=== PATIENT | female | born 1985 | race Caucasian/White ===

== ENCOUNTER 2019-04-25 16:19 | Emergency (ER) | payer OTHER ==
[2019-04-25 16:35] VITALS: BP 114/63
--- NOTE | 2019-04-25 17:04 | UC ---
Lower Extremity/Ankle HPI - HPI Summary HPI Summary: Pt states the past few days her right knee has been giving out. She also complains of right foot pain with unkown injury. Pt states because of her pacemaker" I have black outs so I don't know if I fell" PCP is aware of the blackouts and she has an appointment for an EKG this coming week. She states she does not recall any specific injury. - History of Current Complaint Chief Complaint: UCLowerExtremity Stated Complaint: L KNEE AND ANKLE PAIN Time Seen by Provider: 04/25/19 16:31 Hx Obtained From: Patient Hx Last Menstrual Period: does not get ?: No Onset/Duration: Gradual Onset Severity Initially: Mild Severity Currently: Mild Pain Intensity: 7 Aggravating Factor(s): Ambulation Alleviating Factor(s): Elevation Able to Bear Weight: Yes - Allergies/Home Medications Allergies/Adverse Reactions: Allergies Allergy/AdvReac Type Severity Reaction Status Date / Time enviromental Allergy Mild Congestion Uncoded 04/25/19 16:35 PMH/Surg Hx/FS Hx/Imm Hx Previously Healthy: Yes Endocrine History: Thyroid Disease Cardiovascular History: Pacemaker/ICD - Surgical History Surgical History: Yes Surgery Procedure, Year, and Place: [facility] - 03/2012. L knee ACL repair. L hand surgery. tubal ligation 2005. ablation - Family History Known Family History: Positive: None Family History: no reported cardio vascular issues in family lineage - Social History Alcohol Use: None Substance Use Type: None Smoking Status (MU): Former Smoker Type: Cigarettes Amount Used/How Often: 10 cigarettes a day, 8-9 years Length of Time of Smoking/Using Tobacco: since age 18 Have You Smoked in the Last Year: Yes When Did the Patient Quit Smoking/Using Tobacco: 02/2019 Review of Systems All Other Systems Reviewed And Are Negative: Yes Motor: Positive: Negative Neurovascular: Positive: Negative Musculoskeletal: Positive: Negative, Other: - Pain lateral left knee and left heel. Neurological: Positive: Negative Is Patient Immunocompromised?: No Physical Exam Triage Information Reviewed: Yes Appearance: Well-Appearing, No Pain Distress, Well-Nourished Vital Signs: Initial Vital Signs Temp 99.1 F 04/25/19 16:28 Pulse 109 04/25/19 16:28 Resp 16 04/25/19 16:28 BP 114/63 04/25/19 16:28 Pulse Ox 100 04/25/19 16:28 Vital Signs Reviewed: Yes Musculoskeletal: Positive: Strength Intact, ROM Intact, No Edema, Other: - Knee ligaments intact, pain on palpation left heel and plantar surface near left heel , no bruising, erythema, deformity or swelling. Neurological: Positive: Alert, Muscle Tone Normal Psychological Exam: Normal Skin Exam: Normal Lower Extremity Course/Dx - Course Course Of Treatment: Left knee:negative Left Foot:negative A knee immobilizer will be placed. - Differential Dx/Diagnosis Provider Diagnosis: Knee pain, left, Foot sprain Discharge - Sign-Out/Discharge Documenting (check all that apply): Patient Departure All imaging exams completed and their final reports reviewed: Yes - Discharge Plan Condition: Fair Disposition: HOME Patient Education Materials: Foot Sprain (ED), Knee Immobilizer (ED) Referrals: Diogo Costa MD [Medical Doctor] - Dina Dumont MD [Primary Care Provider] - Additional Instructions: Limit walking. Ice and elevate intermittently over the next few days. Follow up with the orthopedist in 3-4 days for further treatment. - Billing Disposition and Condition Condition: FAIR Disposition: Home
== END 2019-04-25 17:54 | disposition home or self-care (01) ==
LOC: UCCORT 16:19
DX: M25.561 Pain in right knee (principal); S93.602A Unspecified sprain of left foot, initial encounter; X58.XXXA Exposure to other specified factors, initial encounter; Y92.9 Unspecified place or not applicable; Z95.0 Presence of cardiac pacemaker; Z87.891 Personal history of nicotine dependence
CPT/HCPCS: 99212; G0463

== ENCOUNTER 2019-08-22 11:19 | Emergency (ER) | payer OTHER ==
--- OUTSIDE RECORDS SUMMARY | 2019-08-22 11:27 | XMS REPORT | Continuity of Care Document ---
:1985 External Reference #:[id number] Author Name Mckayla Diane NP (transmitted by agent of provider Marlyn Aburto) Address [address] [place] [address] Care Team Providers Name Role Phone Dina Dumont MD, PHD - Family Care Team Information Parent Coach [phone] Medicine Problems Active Problems Provider Date Cyst Jaw Other Lynn Quarles PA Onset: 07/11/2011 Eustachian tube disorder Mckayla Diane NP Onset: 05/13/2019 Social History Type Date Description Comments Sex Unknown Tobacco Use Start: Unknown Never Smoked Cigarettes Tobacco Use Start: Unknown Current Cigarette Smoker 1 Pack Daily ETOH Use Denies alcohol use ETOH Use Never used alcohol Recreational Drug Use Denies Drug Use Recreational Drug Use Never Used Drugs Allergies, Adverse Reactions, Alerts Description No Known Drug Allergies Medications Active Medications SIG Qnty Indications Ordering Provider Date Fluticasone [place] 2 Sprays 16units Rex Dorado, 06/30/2018 Propionate Into Each M.D. 50mcg/Act Nostril Once Suspension Daily Pantoprazole Sodium Qday Unknown 40mg Tablets DR Tylenol prn Unknown 325mg Tablets Multi-Vitamin qday Unknown Tablets Vitamin B Qday Unknown Tablets Gabapentin tid 30caps Unknown 100mg Capsules Omeprazole 1 po qd 90caps Unknown 40mg Capsules DR Simvastatin Qday Unknown 20mg Tablets Sertraline HCL Qday Unknown 200mg Tablets Mirtazapine daily Unknown 45mg Tablets Dispers Breo Ellipta 2 puffs qhs Unknown 200/25mcg Aerosol History Medications Ciprodex 5 drops twice a day 7.500ml Rex Dorado, 07/06/2019 - 0.3-0.1% x 10 days right ear M.D. 07/16/2019 Suspension Ciprodex 3-4 gtts bid in 15ml Estrada Rex, 05/13/2019 - 0.3-0.1% affected ear x 1 wk M.D. 07/06/2019 Suspension rebate: rxbin: [id number], rxpcn: [id number], rxgrp: [id number], java software architect: [id number]), id# [id number] Ofloxacin (Otic) 3-4drops twice 5ml EstradaYungoj, 05/13/2019 - 0.3% daily in affected M.D. 07/06/2019 Solution ear for one week Medications Administered in Office Medication SIG Qnty Indications Ordering Provider Date Dexamethasone Rex Dorado M.D. 07/16/2019 Injection Immunizations Description No Information Available Vital Signs Date Vital Result Comment 08/04/2019 9:35am Weight 161.00 lb Height 62 inches 5'2" BMI (Body Mass Index) 29.4 kg/m2 BP Systolic 112 mmHg BP Diastolic 79 mmHg Heart Rate 109 /min O2 % BldC Oximetry 97 % Body Temperature 98.2 F Pain Level 7 07/16/2019 3:19pm Weight 160.00 lb Height 62 inches 5'2" BMI (Body Mass Index) 29.3 kg/m2 BP Systolic 120 mmHg BP Diastolic 79 mmHg Heart Rate 93 /min O2 % BldC Oximetry 99 % Body Temperature 97.4 F Pain Level 7 Results Description No Information Available Procedures Date Code Description Status 07/16/2019 71015 Labyrinthotomy Completed 06/23/2019 27107 Tympanostomy, Gen. Anesth. Completed 06/23/2019 13647 Anesthesia, Tympanotomy Completed Medical Devices Description No Information Available Encounters Type Date Location Provider Dx Diagnosis Office Visit 07/16/2019 Main Office Rex Dorado M.D. Z96.22 Myringotomy tube(s) 4:00p status H91.93 Unspecified hearing loss, bilateral H93.13 Tinnitus, bilateral Office Visit 07/06/2019 3:00p Main Office Rex Dorado Z96.22 Myringotomy tube(s) MLingDLing status Office Visit 05/13/2019 8:00a Main Office Mckayla Crow H69.93 Unspecified IGNACIO Diane Eustachian tube disorder, bilateral H60.8x2 Other otitis externa, left ear Assessments Date Code Description Provider 07/16/2019 Z96.22 Myringotomy tube(s) status Rex Dorado M.D. 07/16/2019 H91.93 Unspecified hearing loss, bilateral Rex Dorado M.D. 07/16/2019 H93.13 Tinnitus, bilateral Rex Dorado M.D. 07/06/2019 Z96.22 Myringotomy tube(s) status Rex Dorado M.D. 06/23/2019 H93.13 Tinnitus, bilateral Miguel Ángel Jimenez MD 06/23/2019 H93.13 Tinnitus, bilateral Rex Dorado M.D. 06/23/2019 H91.93 Unspecified hearing loss, bilateral Miguel Ángel Jimenez MD 06/23/2019 H91.93 Unspecified hearing loss, bilateral Rex Dorado M.D. 05/13/2019 H69.93 Unspecified Eustachian tube disorder, Mckayla Diane NP bilateral 05/13/2019 H60.8x2 Other otitis externa, left ear Mckayla Diane NP Plan of Treatment No Information Available Functional Status Description No Information Available Mental Status Description No Information Available Referrals Refer to Dr Reason for Referral Status Appt Date Rex Dorado M.D. NO AUTH REQ FOR SURGERY Created [address] [place] [id number] [phone] Rex Dorado M.D. NO AUTH REQ FOR SURGERY Created [address] [place] [id number] [phone]
--- OUTSIDE RECORDS SUMMARY | 2019-08-22 11:27 | XMS REPORT | Continuity of Care Document ---
:1985 External Reference #:[id number] Author Name Cristina Tamayo FNP Address [address] [place] [address] Care Team Providers Name Role Phone Dina Dumont MD, PHD - Family Care Team Information [employer]ge [phone] Medicine Problems Active Problems Provider Date Cardiac pacemaker in situ Kota Mckinney M.D., Onset: 11/11/2014 [facility] Hypothyroidism Marylou Oneill M.D. Onset: 09/15/2015 Enthesopathy Randy Garcia MD, FACS Onset: 09/28/2013 Talipes planus Randy Garcia MD, FACS Onset: 09/28/2013 Localized, primary osteoarthritis of Randy Garcia MD, FACS Onset: 09/28 the ankle and/or foot Arthralgia of the lower leg Randy Garcia MD, FACS Onset: 11/27/2013 Chondromalacia of patella Randy Garcia MD, FACS Onset: 11/27/2013 Sick sinus syndrome Noris Torres MD Onset: 03/18/2014 Hyperlipidemia Usha William FNP Onset: 03/18/2012 Depressive disorder Noris Torres MD Onset: 08/15/2011 Celiac disease Noris Torres MD Onset: 08/15/2011 Tobacco user Raquel Mckay MD Onset: 07/21/2015 Mood disorder Marylou Oneill M.D. Onset: 06/22/2016 Counseling about tobacco use Kota Mckinney M.D., Onset: 08/17/2016 [facility] Hand joint pain Jeff Singh M.D. Onset: 10/23/2017 Pain in limb Jeff Singh M.D. Onset: 11/18/2017 Carpal joint sprain Jeff Singh M.D. Onset: 11/18/2017 Arthralgia of the ankle and/or foot Marylou Oneill M.D. Onset: 01/03/2018 Tachycardia Dina Dumont MD, PHD Onset: 06/10/2018 Insomnia Dina Dumont MD, PHD Onset: 07/28/2018 Exercise-induced asthma Dina Dumont MD, PHD Onset: 07/28/2018 Parietoalveolar pneumopathy Thelma Talley PA Onset: 10/02/2018 Contact dermatitis Thelma Talley PA Onset: 11/05/2018 Calcium deposits in tendon Dina Dumont MD, PHD Onset: 01/15/2019 Mixed hyperlipidemia Dina Dumont MD, PHD Onset: 01/15/2019 Counseling about tobacco use Thelma Talley PA Onset: 02/23/2019 Chest pain Dina Dumont MD, PHD Onset: 04/02/2019 Tietze's disease Dina Dumont MD, PHD Onset: 04/02/2019 Anxiety state Dina Dumont MD, PHD Onset: 04/02/2019 Osteoarthrosis involving multiple Dina Dumont MD, PHD Onset: 04/24/2019 sites but not designated as generalized Alopecia Dina Dumont MD, PHD Onset: 04/24/2019 Pediculosis capitis Dina Dumont MD, PHD Onset: 04/24/2019 Contusion of foot Lindsay Frank PA Onset: 04/29/2019 Sprain of foot Lindsay Frank PA Onset: 04/29/2019 Derangement of knee Lindsay Frank PA Onset: 04/29/2019 Hypocalcemia Dina Dumont MD, PHD Onset: 05/12/2019 Social History Type Date Description Comments Sex Unknown Tobacco Use Start: Unknown End: Former Cigarette Smoker Smoking Status Reviewed: 07/17/19 Former Cigarette Smoker ETOH Use Denies alcohol use Recreational Drug Use Denies Drug Use Exercise Type/Frequency Does housework daily Allergies, Adverse Reactions, Alerts Description No Known Drug Allergies Medications Active Medications SIG Qnty Indications Ordering Date Provider Prednisone 1 tablet daily x 4tabs M79.601 TorresJayRa, 07/17/2019 20mg 4 days Cristina M., Tablets [employer]IST[employer] Ciprodex 5 drops twice a 7.500units DoradoHarrisj, 07/06/2019 0.3-0.1% day x 10 days MD Suspension right ear Risperidone 1 by mouth at 30tabs G47.00 Norton, 06/04/2019 0.25mg bedtime MD Dina, Tablets PHD Prenatabs Rx 1 by mouth every 90tabs K90.0 Norton, 05/12/2019 29-1mg day MD Dina, Tablets PHD Magnesium 27 1 tab by mouth 60tabs K90.0 Norton, 05/12/2019 twice a day as MD Dina, 500(27Mg) mg Tablets needed for muscle PHD spasm Calcium Antacid 2 tab by mouth 240units E83.51 Norton, 05/12/2019 Extra Strength twice a day MD Dina, 750mg PHD Chewtabs Ferrous Sulfate Take One Tablet 60tabs D64.9 Norton, 03/31/2019 By Mouth Twice A MD Dina, 325(65Fe) mg Tablets Day PHD QC Arthritis Pain Take One Tablet 90tabs Norton, 03/31/2019 Relief By Mouth Every 8 MD Dina, 650mg Tablets Hours as Needed PHD ER For Pain Omeprazole 1 by mouth every 90caps Julia, 02/23/2019 20mg day MD Dina, Capsules DR PHD Vitamin D3 Take One Capsule 30caps Norton, 01/19/2019 5000Unit By Mouth Every MD Dina, Capsules Day PHD Diclofenac Sodium Apply To Right 100units L03.113 Norton, 12/24/2018 1% Hand & Wrist Four MD Dina, Gel Times A Day as PHD Needed Venlafaxine HCL ER Take One Capsule 30caps Julia, 12/23/2018 By Mouth Every MD Dina, 37.5mg Caps ER 24HR Day PHD Fluticasone Inhale One puff 1units Norton, 11/17/2018 Propionate/Salmetero By Mouth Twice A MD Dina, l Day PHD 113-14mcg/Act Aerosol Ventolin HFA 2 puffs inh every 1units J45.990 Julia, 07/28/2018 4 hours wheezing MD Dina, 108(90Base) mcg/Act or difficulty PHD Aerosol breathing Fluticasone [place] 2 Sprays 16units EstradaYungoj, 06/30/2018 Propionate Into Each Nostril 50mcg/Act Once Daily Suspension Atorvastatin Calcium Take One Tablet 30tabs Julia, 04/14/2018 By Mouth Every MD Dina, 40mg Tablets Day PHD Meloxicam Take One Tablet 30tabs Julia, 10/11/2015 15mg By Mouth Every MD Dina, Tablets Day PHD Levothyroxine Sodium Take One Tablet 30tabs E03.9 Julia, 08/08/2015 By Mouth Every MD Dina, 50mcg Tablets Day PHD Loratadine Take One Tablet 30tabs Julia, 02/16/2015 10mg By Mouth Every MD Dina, Tablets Day as Needed PHD Pantoprazole Sodium Qday Unknown 40mg Tablets DR Simvastatin Qday Unknown 20mg Tablets Mirtazapine daily Unknown 45mg Tablets Dispers Naratriptan HCL 1 bid prn Unknown 2.5mg migraine max Tablets 2/week Lorazepam take 1-2 tablets 60tabs F41.9 Julia, 1mg Tablets once daily as MD Dina, needed for PHD moderate to severe anxiety maximum daily dose = 2 F42.9 Tizanidine HCL 1-2 pills by 30tabs Beckie Burroughs 2mg mouth every 8 Tablets hours as needed spasm Gabapentin Take One Capsule 90caps M79.7 Dina Dumont MD, 400mg Capsules By Mouth Three PHD Times A Day Dicyclomine HCL Take One Capsule Unknown 10mg By Mouth Three Capsules Times A Day Before Meals Divalproex Sodium ER Take Two Tablets Unknown By Mouth AT 500mg Tablets ER 24HR Bedtime Aripiprazole Take One Tablet 30tabs Dina Dumont MD, 10mg Tablets By Mouth Every PHD Evening History Medications Fluconazole 1 by mouth once 1tabs L65.9 Dina Dumont, 05/12/2019 - 150mg can repeat in 1 , PHD Unknown Tablets week Doxycycline 1 cap by mouth 30caps M15.3 Dina Dumont, 04/24/2019 - Monohydrate twice a day , PHD Unknown 100mg before meals Capsules Complete Lice Use as directed - 1units B85.0 Dina Dumont, 04/24/2019 - Treatment need to comb nits , PHD Unknown weekly 0.33-4-0.5% Kit Nicotine Apply 1 Patch 28units Z71.6 Kush Quinones MD 03/19/2019 - 14mg/24HR Once Daily In The Unknown Patches 24HR Morning,Remove AT Night,Rotate Sites Ondansetron take one tablet 15tabs R11.0 Dina Dumont, 02/04/2019 - 4mg by mouth every 8 MD PHD 02/23/2019 Tablets Dispers hours as needed for nausea Meclizine HCL 1 tab by mouth 42tabs R42 Dina Dumont, 02/04/2019 - four times a day MD PHD 04/02/2019 12.5mg Tablets as needed for dizziness Ondansetron once - given in 1tabs R11.0 Dina Dumont, 02/04/2019 - 8mg office MD PHD 02/23/2019 Tablets Dispers SM Nicotine Apply 1 Patch 28units Z71.6 Kush Quinones MD 01/22/2019 - Transdermal Once Daily In The 03/19/2019 System/Step 2/Clear Morning,Remove AT Night,Rotate 14mg/24HR Patches Sites 24HR Vitamin D3 Adult 4 tab by mouth 120units Dina Dumont, 01/19/2019 - Gummies every day MD PHD 02/04/2019 1000Unit Chewtabs Medications Administered in Office Medication SIG Qnty Indications Ordering Provider Date Depomedrol 40mg/1cc Mercedes Hill MD 06/01/2019 (methylprednisolone acetate) Injection Immunizations CPT Code Status Date Vaccine Lot # [id number] Given 08/20/2018 Influenza Virus Vaccine, Quadrivalent, 36 Mos+, [id number] 26370 Given 01/03/2018 Td Preservative Free For Use In Individuals 7 Yrs [id number] Or Older 39327 Given 09/06/2017 Influenza Virus Vaccine Quadrivalent Iiv4 Split [id number] Preser Free Id [id number] Given 06/22/2016 Influenza Vaccine (Fluzone) Age 3 And Older [id number] Given 08/08/2015 Influenza Vaccine (Fluzone) Age 3 And Older [id number] 19202 Given 09/15/2014 flu vaccination 57010 Given 07/31/2013 flu vaccination 94844 Given 08/18/2010 flu vaccination [id number] Refused 08/07/2017 Influenza Virus Vaccine Quadrivalent Iiv4 Split Preser Free Id Vital Signs Date Vital Result Comment 07/17/2019 5:19pm BP Systolic 101 mmHg BP Diastolic 72 mmHg Body Temperature 97.8 F Heart Rate 91 /min Respiratory Rate 16 /min Weight 161.00 lb O2 % BldC Oximetry 98 % Pain Level 7 07/17/2019 5:10pm Respiratory Rate 16 /min Weight 160.00 lb Pain Level 7 Results Test Date Facility Test Result H/L Range Note PTH Intact 05/28/2019 [facility] Calcium 9.2 mg/dL 8.7-10.2 1 W/Calcium [address] [place], [place] [id number] [phone] PTH,Intact 26 pg/mL 15-65 . . 2 Laboratory test 05/28/2019 [facility] Vitamin 54.4 30.0-100.0 3 finding [address] [facility] D,25-Hydroxy ng/mL [place], [place] [id number] [phone] Albumin 3.2 g/dL Low 3.4-5.0 Vitamin B12 And 05/28/2019 [facility] Vitamin B12 560 pg/mL Normal 193-986 Folate [address] [place], [place] [address] [phone] Folic Acid 12.7 ng/mL Normal 3.1-17.5 Laboratory 04/24/2019 [facility] Sedimentation 11 mm/hr Normal 2-40 4, 5 test finding [address] [place], [place] [address] [phone] Rheumatoid Factor Screen < 10.0 IU/mL Normal 0.0-15.0 C-Reactive Protein,Quant < 3.0 mg/L <3.0 Lyme Igm 04/24/2019 [facility] Lyme Disease < 0.80 0.00-0.79 6 (Reflex [address] Antibody,QT,Igm index Western Blot) [place] [address] [phone] CCP Igg/Iga 04/24/2019 [facility] CCP Igg/Iga 7 units 0-[address] [place] [address] [phone] 1 E83.51 K90.0 2 Interpretation Intact PTH Calcium (pg/mL) (mg/dL) Normal 15 - 65 8.6 - 10.2 Primary Hyperparathyroidism >65 >10.2 Secondary Hyperparathyroidism >65 <10.2 Non-Parathyroid Hypercalcemia <65 >10.2 Hypoparathyroidism <15 < 8.6 Non-Parathyroid Hypocalcemia 15 - 65 < 8.6 Performed at: [facility] [address] [id number] [employer] Architect: Estelita Mcpherson MD, Phone: [phone] 3 Vitamin D deficiency has been defined by the [place] of [employer] and an Endocrine Society practice guideline as a level of serum 25-OH vitamin D less than 20 ng/mL (1,2). The Endocrine Society went on to further define vitamin D insufficiency as a level between 21 and 29 ng/mL (2). 1. IOM ([place] of [employer]). 2010. Dietary reference intakes for calcium and D. [place]: The National Academies Press. 2. Clementina MF, Giovanny NC, Jose C MAGANA, et al. Evaluation, treatment, and prevention of vitamin D deficiency: an Endocrine Society clinical practice guideline. JCEM. 2010; 96(7):1911-30. Performed at: [facility] [address] [id number] [employer] Architect: Estelita Mcpherson MD, Phone: [phone] 4 M15.3 5 This result was obtained with an ESR method that is not based on the standard Westergren Method. When comparing results obtained from the traditional Westergren ESR and this method it is important to refer to the reference range for each method. Method: Capillary Photometry 6 Negative <0.80 Equivocal 0.80 - 1.19 Positive >1.19 IgM levels may peak at 3-6 weeks post infection, then gradually decline. 7 Negative <20 Weak positive 20 - 39 Moderate positive 40 - 59 Strong positive >59 Performed at: RN - [facility] [address] [facility], [place], [place] [id number] [employer] Architect: Estelita Mcpherson MD, Phone: [phone] Performed at: - [facility] [address] [id number] [employer]Ee Architect: Tiago Srivastava MD, Phone: [phone] Procedures Date Code Description Status 07/02/2019 19057 Radiology, Wrist Complete Completed 06/01/201945435 Asp./Injection major joint Completed 04/30/2019 70440 Echocardiogram Complete Completed 03/17/2019 15670 Dual Pacemaker Programming Anayisis, Review And Report Completed Medical Devices Description No Information Available Encounters Type Date Location Provider Dx Diagnosis Office Visit 07/17/2019 [facility] Roni, M79.601 Pain in right arm 5:00p Cristina Acuna [employer] ASSISTANT Office Visit 07/02/2019 Orthopaedic Office Lindsay Frank, M25.531 Pain in right 9:30a PA wrist Office Visit 06/04/2019 Family Dina Mai, S93.402A Sprain of 10:15a Jim Wynn MD, PHD unspecified ligament of left ankle, init encntr G47.00 Insomnia, unspecified Office Visit 06/01/2019 [place], M23.304 Other meniscus 1:45p Office MD Mercedes derangements, unsp medial meniscus, left knee M17.12 Unilateral primary osteoarthritis, left knee M25.562 Pain in left knee Office Visit 05/28/2019 1:00p Pulmonology Thelma Talley, J84.9 Interstitial PA pulmonary disease, unspecified R05 Cough F17.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, cigarettes, in remission Z71.6 Tobacco abuse counseling Office Visit 05/19/2019 [place] M23.004 Cystic meniscus, 2:00p Office MD Mercedes unspecified medial meniscus, left knee M23.304 Other meniscus derangements, unsp medial meniscus, left knee Office Visit 05/12/2019 11:30a [facility] Savage Dumont L65.9 Nonscarring hair Jim Arroyo MD, loss, unspecified PHD 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 K90.0 Celiac disease E83.51 Hypocalcemia Office Visit 04/29/2019 Orthopaedic Lindsay Frank, S90.32xA Contusion of 9:30a Office PA left foot, initial encounter S93.602A Unspecified sprain of left foot, initial encounter M23.8x2 Other internal derangements of left knee W10.9xxA Fall (on) (from) unspecified stairs and steps, init encntr Office Visit 04/24/2019 3:00p Family Medicine Dina Dumont, M15.3 Secondary Jim Wynn MD, PHD multiple arthritis L65.9 Nonscarring hair loss, unspecified 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 Z95.0 Presence of cardiac pacemaker Office Visit 04/14/2019 2:40p Cardiology Kota Mckinney R07.9 Chest pain, Office Tino Acuna, [facility] unspecified Z95.0 Presence of cardiac pacemaker Office Visit 04/02/2019 8:30a Family Medicine Julia R07.9 Chest pain, Jim Arroyo MD, unspecified PHD M94.0 Chondrocostal junction syndrome [Tietze] F41.9 Anxiety disorder, unspecified K90.0 Celiac disease Office Visit 02/23/2019 10:00a Pulmonology Thelma Talley, R07.9 Chest pain, PA unspecified F17.210 Nicotine dependence, cigarettes, uncomplicated Z71.6 Tobacco abuse counseling Office Visit 02/04/2019 4:15p Family Savage Dumont, H81.313 Aural vertigo, Jim Arroyo MD, bilateral PHD R42 Dizziness and giddiness R11.0 Nausea Assessments Date Code Description Provider 07/17/2019 M79.601 Pain in right arm Cristina Tamayo, [employer]IST[employer] 07/02/2019 M25.531 Pain in right wrist Lindsay Frank, PA 06/04/2019 S93.402A Sprain of unspecified ligament of Dina Dumont MD, PHD left ankle, initial encounter 06/04/2019 G47.00 Insomnia, unspecified Dina Dumont MD, PHD 06/01/2019 M23.304 Other meniscus derangements, Mercedes Hill MD unspecified medial meniscus, left knee 06/01/2019 M17.12 Unilateral primary osteoarthritis, Mercedes Hill MD left knee 06/01/2019 M25.562 Pain in left knee Mercedes Hill MD 05/28/2019 J84.9 Interstitial pulmonary disease, Thelma Talley PA unspecified 05/28/2019 R05 Cough Thelma Talley PA 05/28/2019 F17.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, cigarettes, in Thelma Talley PA remission 05/28/2019 Z71.6 Tobacco abuse counseling Thelma Talley PA 05/19/2019 M23.004 Cystic meniscus, unspecified medial Mercedes Hill MD meniscus, left knee 05/19/2019 M23.304 Other meniscus derangements, Mercedes Hill MD unspecified medial meniscus, left knee 05/12/2019 L65.9 Nonscarring hair loss, unspecified Dina Dumont MD, PHD 05/12/2019 B85.0 Pediculosis due to Dina Ruby MD, PHD humanus capitis 05/12/2019 K90.0 Celiac disease Dina Dumont MD, PHD 05/12/2019 E83.51 Hypocalcemia Dina Dumont MD, PHD 04/30/2019 R07.9 Chest pain, unspecified Alban Muniz MD 04/29/2019 S90.32xA Contusion of left foot, initial Lindsay Frank PA encounter 04/29/2019 S93.602A Unspecified sprain of left foot, Lindsay Frank PA initial encounter 04/29/2019 M23.8x2 Other internal derangements of left Lindsay Frank PA knee 04/29/2019 W10.9xxA Fall (on) (from) unspecified stairs Lindsay Frank PA and steps, initial encounter 04/24/2019 M15.3 Secondary multiple arthritis Dina Dumont MD, PHD 04/24/2019 L65.9 Nonscarring hair loss, unspecified Dina Dumont MD, PHD 04/24/2019 B85.0 Pediculosis due to Dina Ruby MD, PHD humanus capitis 04/24/2019 Z95.0 Presence of cardiac pacemaker Dina Dumont MD, PHD 04/14/2019 R07.9 Chest pain, unspecified Kota Mckinney M.D., [facility] 04/14/2019 Z95.0 Presence of cardiac pacemaker Kota Mckinney M.D., [facility] 04/02/2019 R07.9 Chest pain, unspecified Dina Dumont MD, PHD 04/02/2019 M94.0 Chondrocostal junction syndrome Dina Dumont MD, PHD [[facility]] 04/02/2019 F41.9 Anxiety disorder, unspecified Dina Dumont MD, PHD 04/02/2019 K90.0 Celiac disease Dina Dumont MD, PHD 03/17/2019 I47.2 Ventricular tachycardia Kota Mckinney M.D., [facility] 03/17/2019 I47.2 Ventricular tachycardia Nubia Rascon, PA 03/17/2019 I49.5 Sick sinus syndrome Kota Mckinney M.D., [facility] 03/17/2019 I49.5 Sick sinus syndrome Nubia Rascon, PA 03/17/2019 Z95.0 Presence of cardiac pacemaker Kota Mckinney M.D., [facility] 03/17/2019 Z95.0 Presence of cardiac pacemaker Nubia Rascon, PA 02/23/2019 R07.9 Chest pain, unspecified Thelma Talley, PA 02/23/2019 F17.210 Nicotine dependence, cigarettes, Thelma Talley PA uncomplicated 02/23/2019 Z71.6 Tobacco abuse counseling Thelma Talley PA 02/04/2019 H81.313 Aural vertigo, bilateral Dina Dumont MD, PHD 02/04/2019 R42 Dizziness and giddiness Dina Dumont MD, PHD 02/04/2019 R11.0 Nausea Dina Dumont MD, PHD Plan of Treatment Future Appointment(s):09/30/2019 11:00 am - Thelma Tlaley PA at Uvtcvuhkxem12/ 06/2019 10:30 am - Mercedes Hill MD at Orthopaedic [id number]/20/2019 8:45 am - Nubia Rascon PA at Cardiology Jjpeed0204/13/2020 9:00 am - Nathalia Vicente, MSN, [employer] ASSISTANT at Cardiology Office Functional Status Functional Condition Comment Date Status Independent with all ADL's Active Glasses Active Independent with all IADL's Active Complete Dentures Active Mental Status Description No Information Available Referrals Refer to Dr Reason for Referral Status Appt Date Rex Dorado MD Sudden pain behind left ear not responding to Closed 2018 medication - Seen by Dr. Drake (neuro) who recommended referral to Dr. Dorado ENT. PCP has not examined left ear since onset of pain but warning: Patient has been unable to treat and clear herself of massive head lice infestation lasting months now and hair covered in nits at last office visit. [address] [place] [address] [phone] Carlitos Lucero MD Chronic GI upset, on PPI, still having GERD, hx Closed obstruction, IBS-D, cardiac hx, mental health hx. Using NSAIDs [address] [place] [address] [phone]
--- OUTSIDE RECORDS SUMMARY | 2019-08-22 11:27 | XMS REPORT | Continuity of Care Document ---
:1985 External Reference #:[id number] Author Name Jeff Reddy MD (transmitted by agent of provider Kale Stein) Address [address] [place] [id number] Care Team Providers Name Role Phone Fawn Reeder MD - Surgery of the Care Team Information Refrigerator Repairman [phone] Hand Dina Dumont M.D. - Family Care Team Information Refrigerator Repairman [phone] Medicine Problems Active Problems Provider Date Migraine without aura Randy Drake M.D. Onset: 01/11/2015 Late effect of sprain AND/OR strain without Jeff Reddy MD Onset: 2017 tendon injury Sprain of wrist and/or hand Jeff Reddy MD Onset: 08/07/2018 Social History Type Date Description Comments Sex Unknown Tobacco Use Start: Unknown Current Cigarette Smoker 1 Pack Daily ETOH Use Denies alcohol use Recreational Drug Use Denies Drug Use Tobacco Use Start: Unknown End: Patient is a former smoker Unknown Smoking Status Reviewed: 07/24/19 Patient is a former smoker Exercise Type/Frequency Exercises regularly Allergies, Adverse Reactions, Alerts Active Allergies Reaction Severity Comments Date NKDA 02/07/2012 Seasonal 12/05/2017 Medications Active Medications SIG Qnty Indications Ordering Date Provider Naratriptan HCL take one tab by 9tabs G43.009 Randy Judd 03/19/2019 2.5mg mouth twice a Tino Drake Tablets day as needed for severe migraines, max 2 days/week Depakote ER take two 60tabs G43.019 Randy Judd 05/24/2016 500mg Tablets tablets by Tino Drake ER 24HR mouth every evening at bedtime Acetaminophen take 2 tablets 100caps Unknown 500mg three times Capsules daily as needed Gabapentin 1 by mouth Unknown 400mg Capsules three times a day Lorazepam 1 tab PO as Unknown 1mg Tablets needed for anxiety Fluoxetine HCL 3 by mouth Unknown 20mg every day Capsules Cyclobenzaprine HCL one by mouth Unknown 10mg three times a Tablets day as needed spasm Zolpidem Tartrate Take One Tablet Unknown 10mg By Mouth AT Tablets Bedtime Maximum Daily Dose = 1 Abilify take one tablet Unknown 10mg Tablets by mouth nightly at bedtime Levothyroxine Sodium 1 by mouth Unknown 50mcg every day Tablets Ferrous Sulfate 1 by mouth Unknown 324(65Fe) every day mg Tablets DR Arthritis Pain Reliever as needed Unknown 650mg Tablets ER Meloxicam Take One Tablet Unknown 15mg Tablets By Mouth Every Day Loratadine Take One Tablet Unknown 10mg Tablets By Mouth Every Day as Needed Breo Ellipta take 1 inhaled Unknown 200-25mcg/Inh daily Aerosol Fluticasone Propionate 2 sprays each Unknown nostril qd. 50mcg/Act Suspension Immunizations Description No Information Available Vital Signs Date Vital Result Comment 07/24/2019 9:20am Height 62 inches 5'2" Weight 157.00 lb Heart Rate 96 /min BP Systolic Sitting 104 mmHg BP Diastolic Sitting 64 mmHg Respiratory Rate 12 /min Pain Level 7 O2 % BldC Oximetry 97 % BMI (Body Mass Index) 28.7 kg/m2 03/19/2019 1:40pm Weight 157.00 lb Heart Rate 106 /min BP Systolic Sitting 106 mmHg Respiratory Rate 20 /min Pain Level 6 [id number] O2 % BldC Oximetry 97 % Results Description No Information Available Procedures Description No Information Available Medical Devices Description No Information Available Encounters Type Date Location Provider Dx Diagnosis Office Visit 03/19/2019 Aiden/Elizabeth Oswald NP G43.109 Migraine with 2:00p Neurologic Serv Of aura, not [place] intractable, w/o status migrainosus H81.10 Benign paroxysmal vertigo, unspecified ear Office Visit 03/13/2019 10:00a Elizabeth Aguilar S63.592D Other specified Orthopedics at MD Maureen sprain of left [place] wrist, subsequent encounter Assessments Date Code Description Provider 03/19/2019 G43.109 Migraine with aura, not intractable, without Trevon Oswald NP status migraino 03/19/2019 H81.10 Benign paroxysmal vertigo, unspecified ear Trevon Oswald NP 03/13/2019 S63.592D Other specified sprain of left wrist, Jeff Reddy MD subsequent encounter Plan of Treatment Future Appointment(s):09/04/2019 9:45 am - Jeff Reddy MD at [place] [facility] at Tqgfwqda66/11/2020 1:00 pm - Trevon Oswald NP at [place] [facility] Functional Status Description No Information Available Mental Status Description No Information Available Referrals Refer to Reason for Referral Status Appt Date Vestibular Rehab PT Benign paroxysmal vertigo, left ear Closed 05/21/[address] [place] [address] [phone]
--- OUTSIDE RECORDS SUMMARY | 2019-08-22 11:27 | XMS REPORT | Continuity of Care Document ---
:1985 External Reference #:[id number] Author Name Rex Dorado M.D. 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 50mcg/Act Nostril Once Suspension Daily Pantoprazole Sodium Qday Unknown 40mg Tablets Tylenol prn Unknown 325mg Tablets Multi-Vitamin qday [...] Suspension Ciprodex 3-4 gtts bid in 15ml Rex Dorado, 05/13/2019 - 0.3-0.1% affected ear x 1 wk M.D. 07/06/2019 Suspension rebate: rxbin: [id number], rxpcn: [id number], rxgrp: [id number], airport engineer: [id number]), id# [id number] Ofloxacin (Otic) 3-4drops twice 5ml Rex Dorado, 05/13/2019 - 0.3% daily in affected M.D. 07/06/2019 Solution ear for one week Immunizations Description No Information Available Vital Signs Date Vital Result Comment 07/16/2019 3:19pm Weight 160.00 lb Height 62 inches 5'2" BMI (Body Mass Index) 29.3 kg/m2 BP Systolic 120 mmHg BP Diastolic 79 mmHg Heart Rate 93 /min O2 % BldC Oximetry 99 % Body Temperature 97.4 F Pain Level 7 07/06/2019 2:57pm Weight 160.00 lb Height 62 inches 5'2" BMI (Body Mass Index) 29.3 kg/m2 BP Systolic 109 mmHg BP Diastolic 76 mmHg Heart Rate 87 /min O2 % BldC Oximetry 97 % Body Temperature 98.2 F Pain Level 9 Results Description No Information Available Procedures Date Code Description Status 06/23/2019 44456 Tympanostomy, Gen. Anesth. Completed 06/23/2019 25396 Anesthesia, Tympanotomy Completed 01/16/2019 83003 Tympanometry Completed 01/16/2019 72033 Audiometry, Comprehensive Completed Medical Devices Description No Information Available Encounters Type Date Location Provider Dx Diagnosis Office Visit 07/06/2019 Main Office Rex Dorado M.D. 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 Eustachian tube disorder, bilateral H93.13 Tinnitus, bilateral Assessments Date Code Description Provider 07/06/2019 Z96.22 Myringotomy tube(s) status Rex Dorado M.D. 06/23/2019 H93.13 Tinnitus, bilateral Miguel Ángel Jimenez MD 06/23/2019 H93.13 Tinnitus, bilateral Rex Dorado M.D. 06/23/2019 H91.93 Unspecified hearing loss, bilateral Miguel Ángel Jimenez MD 06/23/2019 H91.93 Unspecified hearing loss, bilateral Rex Dorado M.D. 05/13/2019 H69.93 Unspecified Eustachian tube disorder, Mckayla Diane NP bilateral 05/13/2019 H60.8x2 Other otitis externa, left ear Mckayla Diane NP 01/16/2019 H69.93 Unspecified Eustachian tube disorder, Rex Dorado M.D. bilateral 01/16/2019 H93.13 Tinnitus, bilateral Rex Dorado M.D. Plan of Treatment Future Appointment(s):08/04/2019 10:00 am - Mckayla Diane NP at Main Office Functional Status Description No Information Available Mental Status Description No Information Available Referrals Refer to Dr Reason for Referral Status Appt Date Rex Dorado M.D. NO AUTH REQ FOR SURGERY Created [address] [place] [id number] [phone] Rex Dorado M.D. NO AUTH REQ FOR SURGERY Created [address] [place] [id number] [phone]
--- OUTSIDE RECORDS SUMMARY | 2019-08-22 11:27 | XMS REPORT | Continuity of Care Document ---
:1985 External Reference #:[id number] Author Name Dina Dumont MD, PHD Address [address] [facility] [address] [facility], [address] [place] [address] Care Team Providers Name Role Phone Dina Dumont MD, PHD - Family Care Team Information Hospital Plan Administrator Medicine Problems Active Problems Provider Date Cardiac pacemaker in situ Kota Mckinney M.D., Onset: 11/11/2014 [facility] Hypothyroidism Marylou Oneill M.D. Onset: 09/15/2015 Enthesopathy [...] tobacco use Kota Mckinney M.D., Onset: 08/17/2016 [facility] Hand joint pain Jeff Singh M.D. Onset: 10/23/2017 Pain in limb Jeff Singh M.D. Onset: 11/18/2017 Carpal joint sprain Jeff Singh M.D. Onset: 11/18/2017 Arthralgia of the ankle and/or foot Maryluo Oneill M.D. Onset: 01/03/2018 Tachycardia Dina Dumont [...] MD, PHD Onset: 04/02/2019 Anxiety state Dina Dumnot MD, PHD Onset: 04/02/2019 Osteoarthrosis involving multiple [...] Use Start: Unknown End: Former Cigarette Smoker ETOH Use Denies alcohol use Recreational Drug Use Denies Drug Use Tobacco Use Start: Unknown Patient denies history of smoking Smoking Status Reviewed: 07/29/19 Patient denies history of smoking Exercise Type/Frequency Does housework daily Allergies, Adverse Reactions, Alerts Description No Known Drug Allergies Medications Active Medications SIG Qnty Indications Ordering Date Provider Risperidone 1 by mouth at 30tabs G47.00 [place], 06/04/2019 0.25mg bedtime MD Dina, Tablets PHD Prenatabs Rx 1 by mouth every 90tabs K90.0 [place], 05/12/2019 29-1mg day MD Dina, Tablets PHD Magnesium 27 1 tab by mouth 60tabs K90.0 [place], 05/12/2019 500(27Mg) twice a day as MD Dina, mg Tablets needed for muscle PHD spasm Calcium Antacid Extra 2 tab by mouth 240units E83.51 [place], 05/12/2019 Strength twice a day MD Dina, 750mg Chewtabs PHD Ferrous Sulfate Take One Tablet 60tabs D64.9 [place], 03/31/2019 By Mouth Twice A MD Dina, 325(65Fe) mg Tablets Day PHD QC Arthritis Pain Take One Tablet 90tabs [place], 03/31/2019 Relief By Mouth Every 8 MD Dina, 650mg Tablets ER Hours as Needed PHD For Pain Omeprazole 1 by mouth every 90caps [place], 02/23/2019 20mg day MD Dina, Capsules DR PHD Vitamin D3 Take One Capsule 30caps Julia, 01/19/2019 5000Unit By Mouth Every MD Dina, Capsules Day PHD Diclofenac Sodium apply to right 100units L03.113 Usha Walter 12/24/2018 1% hand & wrist four C., FIELD SERVICE COORDINATOR Gel times a day as needed Venlafaxine HCL ER Take One Capsule 30caps [place], 12/23/2018 By Mouth Every MD Dina, 37.5mg Caps ER 24HR Day PHD Fluticasone Inhale One puff 1units [place], 11/17/2018 Propionate/Salmeterol By Mouth Twice A MD Dina, Day PHD 113-14mcg/Act Aerosol Ventolin HFA 2 puffs inh every 1units J45.990 [place], 07/28/2018 4 hours wheezing MD Dina, 108(90Base) mcg/Act or difficulty PHD Aerosol breathing Fluticasone [place] 2 Sprays 16units Rex Dorado, 06/30/2018 Propionate Into Each Nostril 50mcg/Act Once Daily Suspension Atorvastatin Calcium Take One Tablet 30tabs Julia, 04/14/2018 By Mouth Every MD Dina, 40mg Tablets Day PHD Meloxicam Take One Tablet 30tabs Julia, 10/11/2015 15mg Tablets By Mouth Every MD Dina, Day PHD Levothyroxine Sodium Take One Tablet 30tabs E03.9 Julia, 08/08/2015 By Mouth Every MD Dina, 50mcg Tablets Day PHD Loratadine Take One Tablet 30tabs Julia, 02/16/2015 10mg Tablets By Mouth Every MD Dina, Day as Needed PHD Pantoprazole Sodium Qday [...] HCL 1-2 pills by 30tabs Beckie Burroughs [facility] 2mg mouth every 8 Tablets hours as [...] By Mouth Every PHD Evening History Medications Prednisone 1 tablet daily 4tabs M79.601 Roni, 07/17/2019 - 20mg x 4 days SHAYY Brown 07/29/2019 Tablets Ciprodex 5 drops twice a 7.500units Rex Dorado MD 07/06/2019 - day x 10 days 07/29/2019 0.3-0.1% right ear Suspension Ciprodex 5 drops twice a 7.500units Rex Dorado MD 07/06/2019 - day x 10 days 07/16/2019 0.3-0.1% right ear Suspension Ciprodex 3-4 gtts bid in 15units Rex Dorado MD 05/13/2019 - affected ear x 07/06/2019 0.3-0.1% 1 wk rebate: Suspension rxbin: [id number], rxpcn: [id number], rxgrp: [id number], acting section chief: [id number]), id# [id number] Fluconazole 1 by mouth once 1tabs L65.9 Dina Dumont, 05/12/2019 - can repeat in 1 , PHD Unknown 150mg Tablets week Doxycycline 1 cap by mouth 30caps M15.3 Dina Dumont, 04/24/2019 - Monohydrate twice a day , PHD Unknown before meals 100mg Capsules Complete Lice Use as directed 1units B85.0 Dina Dumont, 04/24/2019 - Treatment - need to comb , PHD Unknown nits weekly 0.33-4-0.5% Kit Nicotine Apply 1 Patch 28units Z71.6 Kush Quinones MD 03/19/2019 - Once Daily In Unknown 14mg/24HR Patches The 24HR Morning,Remove AT Night,Rotate Sites Ondansetron take one tablet 15tabs R11.0 Dina Dumont, 02/04/2019 - 4mg by mouth every , PHD 02/23/2019 Tablets Dispers 8 hours as needed for nausea Meclizine HCL 1 tab by mouth 42tabs R42 Dina Dumont, 02/04/2019 - four times a , PHD 04/02/2019 12.5mg Tablets day as needed for dizziness Ondansetron once - given in 1tabs R11.0 Dina Dumont, 02/04/2019 - 8mg office , PHD 02/23/2019 Tablets Dispers Medications Administered in Office Medication SIG Qnty Indications Ordering Provider Date Depomedrol 40mg/1cc Mercedes Hill MD 06/01/2019 (methylprednisolone acetate) Injection Immunizations CPT Code Status Date Vaccine Lot # [id number] Given 07/29/2019 Influenza Virus Vaccine, Quadrivalent, 36 Mos+, [id number] 21674 Given 08/20/2018 Influenza Virus Vaccine, Quadrivalent, 36 Mos+, [id number] 74206 Given 01/03/2018 Td Preservative Free For Use In Individuals 7 Yrs [id number] Or Older 01093 Given 09/06/2017 Influenza Virus Vaccine Quadrivalent Iiv4 Split [id number] Preser Free Id Q2038 Given 06/22/2016 Influenza Vaccine (Fluzone) Age 3 And Older [id number] Q2038 Given 08/08/2015 Influenza Vaccine (Fluzone) Age 3 And Older [id number] 89150 Given 09/15/2014 flu vaccination 76593 Given 07/31/2013 flu vaccination 43781 Given 08/18/2010 flu vaccination [id number] Refused 08/07/2017 Influenza Virus Vaccine Quadrivalent Iiv4 Split Preser Free Id Vital Signs Date Vital Result Comment 07/29/2019 10:04am BP Systolic 111 mmHg BP Diastolic 76 mmHg Body Temperature 97.2 F Heart Rate 105 /min Respiratory Rate 16 /min Height 63 inches 5'3" Weight 165.00 lb BMI (Body Mass Index) 29.2 kg/m2 BSA (Body Surface Area) 1.78 m2 [place] body weight in kilograms 52 kg O2 % BldC Oximetry 96 % 07/17/2019 5:19pm BP Systolic 101 mmHg BP Diastolic 72 mmHg Body Temperature 97.8 F Heart Rate 91 /min Respiratory Rate 16 /min Weight 161.00 lb O2 % BldC Oximetry 98 % Pain Level 7 Results Test Date Facility Test Result H/L Range Note PTH Intact 05/28/2019 [facility] Calcium 9.2 mg/dL 8.7-10.2 1 W/Calcium [address] [place], [place] [id number] [phone] PTH,Intact 26 pg/mL 15-65 . . 2 Laboratory test 05/28/2019 [facility] Vitamin 54.4 30.0-100.[address] D,25-Hydroxy ng/[place] [address] [phone] Albumin 3.2 g/dL Low 3.4-5.0 Vitamin B12 And 05/28/2019 [facility] Vitamin B12 560 pg/mL Normal 193-[address] [place] [address] [phone] Folic Acid 12.7 ng/mL Normal 3.1-17.5 Laboratory 04/24/2019 [facility] Sedimentation 11 mm/hr Normal 2-40 4, 5 test finding [address] [place] [address] [phone] Rheumatoid Factor Screen < 10.0 IU/mL Normal 0.0-15.0 C-Reactive Protein,Quant < 3.0 mg/L <3.0 Lyme Igm 04/24/2019 [facility] Lyme Disease < 0.80 0.00-0.79 6 (Reflex [address] Antibody,QT,Igm index Western Bl[place]) [place] [address] [phone] CCP Igg/Iga 04/24/2019 [facility] CCP Igg/Iga 7 units 0-[address] [place] [address] [phone] 1 E83.51 K90.0 2 Interpretation Intact PTH Calcium (pg/mL) (mg/dL) Normal 15 - 65 8.6 - 10.2 Primary Hyperparathyroidism >65 >10.2 Secondary Hyperparathyroidism >65 <10.2 Non-Parathyroid Hypercalcemia <65 >10.2 Hypoparathyroidism <15 < 8.6 Non-Parathyroid Hypocalcemia 15 - 65 < 8.6 Performed at: RN - [facility] [address] [id number] Rocket Assembly Operator: Estelita Mcpherson MD, Phone: [phone] 3 Vitamin D deficiency has been defined by the [place] of Medicine and an Endocrine Society practice guideline as a level of serum 25-OH vitamin D less than 20 ng/mL (1,2). The Endocrine Society went on to further define vitamin D insufficiency as a level between 21 and 29 ng/mL (2). 1. IOM ([place] of [employer]). 2010. Dietary reference intakes for calcium and D. [place]: The National Academies Press. 2. Clementina MF, Giovanny NC, Jose C MAGANA, et al. Evaluation, treatment, and prevention of vitamin D deficiency: an Endocrine Society clinical practice guideline. JCEM. 2010; 96(7):1911-30. Performed at: [address] [id number] Rocket Assembly Operator: Estelita Mcpherson MD, Phone: [phone] M15.3 5 This result was obtained [...] - 59 Strong positive >59 Performed at: [address] [id number] Rocket Assembly Operator: Estelita Mcpherson MD, Phone: [phone] Performed at: [address] [id number] Rocket Assembly Operator: Tiago Srivastava MD, Phone: [phone] Procedures Date Code Description Status 07/02/2019 81781 Radiology, Wrist Complete Completed 06/01/2019 68624 Asp./Injection major joint Completed 04/30/2019 25223 Echocardiogram Complete Completed 03/17/2019 74417 Dual Pacemaker Programming Anayisis, Review And Report Completed Medical Devices Description No Information Available Encounters Type Date Location Provider Dx Diagnosis Office Visit 07/17/2019 [facility] Roni, M79.601 Pain in right arm 5:00p SHAYY Brown Office Visit 07/02/2019 Orthopaedic Office Lindsay Frank, M25.531 Pain in right 9:30a PA wrist Office Visit 06/04/2019 Family Medicine Dina Dumont, S93.402A Sprain of 10:15a Jim Wynn MD, PHD unspecified ligament of left ankle, init encntr G47.00 Insomnia, unspecified Office Visit 06/01/2019 [facility], M23.304 Other meniscus 1:45p Office MD Mercedes derangements, unsp medial meniscus, left knee M17.12 Unilateral primary osteoarthritis, left knee M25.562 Pain in left knee Office Visit 05/28/2019 1:00p Pulmonology Thelma Talley, J84.9 Interstitial PA pulmonary disease, unspecified R05 Cough F17.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, cigarettes, in remission Z71.6 Tobacco abuse counseling Office Visit 05/19/2019 [facility], M23.004 Cystic meniscus, 2:00p Office MD Mercedes unspecified medial meniscus, left knee M23.304 Other meniscus derangements, unsp medial meniscus, left knee Office Visit 05/12/2019 11:30a Family Savage Dumont L65.9 Nonscarring hair Jim Arroyo [...] steps, init encntr Office Visit 04/24/2019 3:00p Dina Pyle, M15.3 Secondary Jim Wynn MD, PHD multiple arthritis L65.9 Nonscarring hair loss, unspecified 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 Z95.0 Presence of cardiac pacemaker Office Visit 04/14/2019 2:40p Cardiology Kota Mckinney R07.9 Chest pain, Office Tino Acuna, FACC unspecified Z95.0 Presence of cardiac pacemaker Office Visit 04/02/2019 8:30a Family Savage Dumont R07.9 Chest pain, Jim Arroyo MD, unspecified PHD M94.0 Chondrocostal junction syndrome [Tietze] F41.9 Anxiety disorder, unspecified K90.0 Celiac disease Office Visit 02/23/2019 10:00a Pulmonology Thelma Talley, R07.9 Chest pain, PA unspecified F17.210 Nicotine dependence, cigarettes, uncomplicated Z71.6 Tobacco abuse counseling Office Visit 02/04/2019 4:15p Family Savage Dumont H81.313 Aural vertigo, Jim Arroyo MD, bilateral PHD R42 Dizziness and giddiness R11.0 Nausea Assessments Date Code Description Provider 07/29/2019 M79.601 Pain in right arm Dina Dumont MD, PHD 07/17/2019 M79.601 Pain in right arm BrianJayRa Cristina LouisLing, [facility] 07/02/2019 M25.531 Pain in right wrist Lindsay Frank PA 06/04/2019 S93.402A Sprain of unspecified ligament of Dina Dumont MD, PHD left ankle, initial encounter 06/04/2019 G47.00 Insomnia, unspecified Dina Dumont MD, PHD 06/01/2019 M23.304 Other meniscus derangements, Mercedes Hill MD unspecified medial meniscus, left knee 06/01/2019 M17.12 Unilateral primary osteoarthritis, eMrcedes Hill MD left knee 06/01/2019 M25.562 Pain [...] MD, PHD 05/12/2019 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 Dina Dumont MD, PHD humanus capitis 05/12/2019 K90.0 Celiac disease Dina Dumont MD, PHD 05/12/2019 E83.51 Hypocalcemia Dina Dumont MD, PHD 04/30/2019 R07.9 Chest pain, unspecified Alban Muniz MD 04/29/2019 S90.32xA Contusion of left foot, initial Lindsay Frank, PA encounter 04/29/2019 S93.602A Unspecified sprain of left foot, Lindsay Frank PA initial encounter 04/29/2019 M23.8x2 Other internal derangements of left Lindsay Frank PA knee 04/29/2019 W10.9xxA Fall (on) (from) unspecified stairs Lindsay Frank PA and steps, initial encounter 04/24/2019 M15.3 Secondary multiple arthritis Dina Dumont MD, PHD 04/24/2019 L65.9 Nonscarring hair loss, unspecified Dina Dumont MD, PHD 04/24/2019 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 Dina Dumont MD, PHD humanus capitis 04/24/2019 Z95.0 Presence of cardiac pacemaker Dina Dumont MD, PHD 04/14/2019 R07.9 Chest pain, unspecified Kota Mckinney M.D., [facility] 04/14/2019 Z95.0 Presence of cardiac pacemaker Kota Mckinney M.D., [facility] 04/02/2019 R07.9 Chest pain, unspecified Dina Dumont MD, PHD 04/02/2019 M94.0 Chondrocostal junction syndrome Dina Dumont MD, PHD [[facility]] 04/02/2019 F41.9 Anxiety disorder, unspecified Dina Dumont MD, PHD 04/02/2019 K90.0 Celiac disease Dina Dumont MD, PHD 03/17/2019 I47.2 Ventricular tachycardia Kota Mckinney M.D., [facility] 03/17/2019 I47.2 Ventricular tachycardia Nubia Rascon, PA 03/17/2019 I49.5 Sick sinus syndrome Kota Mckinney M.D., [facility] 03/17/2019 I49.5 Sick sinus syndrome Nubia Rascon, PA 03/17/2019 Z95.0 Presence of cardiac pacemaker Kota Mckinney M.D., [facility] 03/17/2019 Z95.0 Presence of cardiac pacemaker Nubia Rascon, PA 02/23/2019 R07.9 Chest pain, unspecified Thelma Talley PA 02/23/2019 F17.210 Nicotine dependence, cigarettes, Thelma Talley PA uncomplicated 02/23/2019 Z71.6 Tobacco abuse counseling Thelma Talley PA 02/04/2019 H81.313 Aural vertigo, bilateral Dina Dumont MD, PHD 02/04/2019 R42 Dizziness and giddiness Dina Dumont MD, PHD 02/04/2019 R11.0 Nausea Dina Dumont MD, PHD Plan of Treatment Future Appointment(s):09/30/2019 11:00 am - Thelma Talley PA at [id number]/ 06/2019 10:30 am - Mercedes Hill MD at Orthopaedic [id number]/20/2019 8:45 am - Nubia Rascon PA at Cardiology [id number]/13/2020 9:00 am - Nathalia Vicente, MSN, FIELD SERVICE COORDINATOR at Cardiology [id number]/29/2019 - Dina Dumont MD, PHDM79.601 Pain in right armComments:Apply diclofenac gel as needed to R arm for pain I reordered the gel todayContinue using heat for the painCall if symptoms do not improve, we discussed sending a PT script in for some therapy to help with the pain and stiffness Functional Status Functional Condition Comment Date Status [...] in nits at last office visit. [address] [place] [address] [phone] Carlitos Lucero MD Chronic GI upset, on PPI, still having GERD, hx Closed obstruction, IBS-D, cardiac hx, mental health hx. Using NSAIDs [address] [place] [address] [phone]
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
--- OUTSIDE RECORDS SUMMARY | 2019-08-22 11:27 | XMS REPORT | Continuity of Care Document ---
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 Onset: 09/15/2015 Enthesopathy [...] tobacco use Kota Mckinney M.D., Onset: 08/17/2016 [facility] Hand joint pain Jeff Singh M.D. Onset: [...] Prednisone 1 tablet daily x 4tabs M79.601 IainErroliban, 07/17/2019 20mg 4 days Cristina M., Tablets ACCOUNT SOLUTIONS ANALYST Ciprodex 5 drops twice a 7.500units Rex [place], 07/06/2019 0.3-0.1% day x 10 days MD Suspension right ear Risperidone 1 by mouth at 30tabs G47.00 [place], 06/04/2019 0.25mg bedtime MD Dina, Tablets PHD Prenatabs Rx 1 by mouth every 90tabs K90.0 [place], 05/12/2019 29-1mg day MD Dina, Tablets PHD Magnesium 27 1 tab by mouth 60tabs K90.0 [place], 05/12/2019 twice a day as MD Dina, 500(27Mg) mg Tablets needed for muscle PHD spasm Calcium Antacid 2 tab by mouth 240units E83.51 [place], 05/12/2019 Extra Strength twice a day MD Dina, 750mg PHD Chewtabs Ferrous Sulfate Take One Tablet 60tabs D64.9 [place], 03/31/2019 By Mouth Twice A MD Dina, 325(65Fe) mg Tablets Day PHD QC Arthritis Pain Take One Tablet 90tabs [place], 03/31/2019 Relief By Mouth Every 8 MD Dina, 650mg Tablets Hours as Needed PHD ER For Pain Omeprazole 1 by mouth every 90caps [place], 02/23/2019 20mg day MD Dina, Capsules DR PHD Vitamin D3 Take One Capsule 30caps [place], 01/19/2019 5000Unit By Mouth Every MD Dina, Capsules Day PHD Diclofenac Sodium Apply To Right 100units L03.113 [place], 12/24/2018 1% Hand & Wrist Four MD Dina, Gel Times A Day as PHD Needed Venlafaxine HCL ER Take One Capsule 30caps [place], 12/23/2018 By Mouth Every MD Dina, 37.5mg Caps ER 24HR Day PHD Fluticasone Inhale One puff 1units [place], 11/17/2018 Propionate/Salmetero By Mouth Twice A MD Dina, l Day PHD 113-14mcg/Act Aerosol Ventolin HFA 2 puffs inh every 1units J45.990 [place], 07/28/2018 4 hours wheezing MD Dina, 108(90Base) mcg/Act or difficulty PHD Aerosol breathing Fluticasone [place] 2 Sprays 16units Rex Dorado, 06/30/2018 Propionate [...] HCL 1-2 pills by 30tabs Beckie Burroughs ACCOUNT SOLUTIONS ANALYST 2mg mouth every 8 Tablets hours as [...] By Mouth Every PHD Evening History Medications Ciprodex 5 drops twice a 7.500units Dorado Rex, 07/06/2019 - 0.3-0.1% day x 10 days 07/16/2019 Suspension right ear Ciprodex 3-4 gtts bid in 15units Dorado Rex, 05/13/2019 - 0.3-0.1% affected ear x 1 07/06/2019 Suspension wk rebate: rxbin: [id number], rxpcn: pepito, rxgrp: [id number], wallpaper inspector: ([id number]), id# [id number] Fluconazole 1 by mouth once 1tabs L65.9 [place], 05/12/2019 - 150mg can repeat in 1 MD Dina, Unknown Tablets week PHD Doxycycline 1 cap by mouth 30caps M15.3 [place], 04/24/2019 - Monohydrate twice a day MD Dina, Unknown 100mg before meals PHD Capsules Complete Lice Use as directed - 1units B85.0 [place], 04/24/2019 - Treatment need to comb nits MD Dina, Unknown weekly PHD 0.33-4-0.5% Kit Nicotine Apply 1 Patch 28units Z71.6 Kush Quinones, 03/19/2019 - 14mg/24HR Once Daily In The MD Unknown Patches 24HR Morning,Remove AT Night,Rotate Sites Ondansetron take one tablet 15tabs R11.0 Julia, 02/04/2019 - 4mg by mouth every 8 MD Dina, 02/23/2019 Tablets Dispers hours as needed PHD for nausea Meclizine HCL 1 tab by mouth 42tabs R42 Julia, 02/04/2019 - four times a day MD Dina, 04/02/2019 12.5mg Tablets as needed for PHD dizziness Ondansetron once - given in 1tabs R11.0 Julia, 02/04/2019 - 8mg office MD Dina, 02/23/2019 Tablets Dispers PHD Medications Administered in Office Medication SIG Qnty Indications Ordering Provider Date Depomedrol 40mg/1cc Mercedes Hill MD 06/01/2019 (methylprednisolone acetate) Injection Immunizations CPT Code Status Date Vaccine Lot # 60617 Given 08/20/2018 Influenza Virus Vaccine, Quadrivalent, 36 Mos+, [id number] .[id number] 37967 Given 01/03/2018 Td Preservative Free For Use In Individuals 7 Yrs [id number] Or Older 14982 Given 09/06/2017 Influenza Virus Vaccine Quadrivalent Iiv4 Split [id number] Preser Free Id Q2038 Given 06/22/2016 Influenza Vaccine (Fluzone) Age 3 And Older [id number] Q2038 Given 08/08/2015 Influenza Vaccine (Fluzone) Age 3 And Older [id number] 88713 Given 09/15/2014 flu vaccination 47430 Given 07/31/2013 flu vaccination 57240 Given 08/18/2010 flu vaccination 66499 Refused 08/07/2017 Influenza Virus Vaccine Quadrivalent Iiv4 [...] Result H/L Range Note PTH Intact 05/28/2019 [facility] Calcium 9.2 mg/dL 8.7-10.2 1 W/Calcium [address] [place] [address] [phone] PTH,Intact 26 pg/mL 15-65 . . 2 Laboratory test 05/28/2019 [facility] Vitamin 54.4 30.0-100.0 3 finding [address] [facility] D,25-Hydroxy ng/[place] [address] [phone] Albumin 3.2 g/dL Low 3.4-5.0 Vitamin B12 And 05/28/2019 [facility] Vitamin B12 560 pg/mL Normal 193-986 Folate [address] [place] [address] [phone] Folic Acid 12.7 ng/mL Normal 3.1-17.5 Laboratory 04/24/2019 [facility] Sedimentation 11 mm/hr Normal 2-40 4, 5 test finding [address] [place] [address] [phone] Rheumatoid Factor Screen < 10.0 IU/mL Normal 0.0-15.0 C-Reactive Protein,Quant < 3.0 mg/L <3.0 Lyme Igm 04/24/2019 [facility] Lyme Disease < 0.80 0.00-0.79 6 (Reflex [address] Antibody,QT,Igm index Western Blot) [place] [address] [phone] CCP Igg/Iga 04/24/2019 [facility] CCP Igg/Iga 7 units 0-[address] [place] [address] [phone] 1 E83.51 K90.0 2 Interpretation Intact PTH Calcium (pg/mL) (mg/dL) Normal 15 - 65 8.6 - 10.2 Primary Hyperparathyroidism >65 >10.2 Secondary Hyperparathyroidism >65 <10.2 Non-Parathyroid Hypercalcemia <65 >10.2 Hypoparathyroidism <15 < 8.6 Non-Parathyroid Hypocalcemia 15 - 65 < 8.6 Performed at: [facility] [address] [id number] [place]: Estelita Mcpherson MD, Phone: [phone] 3 Vitamin D deficiency has been defined by the [place] of Medicine and an Endocrine Society practice guideline as a level of serum 25-OH vitamin D less than 20 ng/mL (1,2). The Endocrine Society went on to further define vitamin D insufficiency as a level between 21 and 29 ng/mL (2). 1. IOM ([place] of [employer]). 2010. Dietary reference intakes for calcium and D. [place]: The National Academies Press. 2. Clementina MF, Giovanny NC, Jose C MAGANA, et al. Evaluation, treatment, and prevention of vitamin D deficiency: an Endocrine Society clinical practice guideline. JCEM. 2010; 96(7):1911-30. Performed at: [facility] [address] [id number] [place]: Estelita Mcpherson MD, Phone: [phone] 4 M15.3 5 This result was obtained [...] - 59 Strong positive >59 Performed at: [facility] [address] [id number] [place]: Estelita Mcpherson MD, Phone: [phone] Performed at: [facility] [address] [id number] [place]: Tiago Srivastava MD, Phone: [phone] Procedures Date Code Description Status 07/02/2019 96069 Radiology, Wrist Complete Completed 06/01/2019 26289 Asp./Injection major joint Completed 04/30/2019 74429 Echocardiogram Complete Completed 03/17/2019 13436 Dual Pacemaker Programming Anayisis, Review And Report Completed Medical Devices Description No Information Available Encounters Type Date Location Provider Dx Diagnosis Office Visit 07/17/2019 Walk In Clinic Roni M79.601 Pain in right arm 5:00p SHAYY Brown Office Visit 07/02/2019 Orthopaedic Office Lindsay Frank, M25.531 Pain in right 9:30a PA wrist Office Visit 06/04/2019 [facility] Dina Mai, S93.402A Sprain of 10:15a Jim [...] meniscus, left knee Office Visit 05/12/2019 11:30a [facility] Medicine Julia, L65.9 Nonscarring hair Jim Arroyo MD, loss, [...] init encntr Office Visit 04/24/2019 3:00p Family Dina Mai, M15.3 Secondary Jim Wynn MD, PHD multiple [...] M79.601 Pain in right arm Cristina Tamayo, ACCOUNT SOLUTIONS ANALYST 07/02/2019 M25.531 Pain in right wrist Lindsay [...] PHD 04/24/2019 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 [place], Dina, MD, PHD humanus capitis 04/24/2019 Z95.0 Presence of cardiac pacemaker Dina Dumont MD, PHD 04/14/2019 R07.9 Chest pain, unspecified Kota Mckinney M.D., [facility] 04/14/2019 Z95.0 Presence of cardiac pacemaker Kota Mckinney M.D., [facility] 04/02/2019 R07.9 Chest pain, unspecified Dina Dumont MD, PHD 04/02/2019 M94.0 Chondrocostal junction syndrome Dina Dumont MD, PHD [[facility]] 04/02/2019 F41.9 Anxiety disorder, unspecified Dina Dumont MD, PHD 04/02/2019 K90.0 Celiac disease Dina Dumont MD, PHD 03/17/2019 I47.2 Ventricular tachycardia Kota Mckinney M.D., [facility] 03/17/2019 I47.2 Ventricular tachycardia Nubia Rascon, PA 03/17/2019 I49.5 Sick sinus syndrome Kota Mckinney M.D., [facility] 03/17/2019 I49.5 Sick sinus syndrome Nubia Rascon, PA 03/17/2019 Z95.0 Presence of cardiac pacemaker Kota Mckinney M.D., [facility] 03/17/2019 Z95.0 Presence of cardiac pacemaker Nubia Rascon, PA 02/23/2019 R07.9 Chest pain, unspecified Thelma Talley PA 02/23/2019 F17.210 Nicotine dependence, cigarettes, Thelma Talley PA [facility] 02/23/2019 Z71.6 Tobacco abuse counseling Thelma Talley PA 02/04/2019 H81.313 Aural vertigo, bilateral Dina Dumont MD, PHD 02/04/2019 R42 Dizziness and giddiness Dina Dumont MD, PHD 02/04/2019 R11.0 Nausea Dina Dumont MD, PHD Plan of Treatment Future Appointment(s):09/30/2019 11:00 am - Thelma Talley, PA at Ejvfhzdjmpo33/ 06/2019 10:30 am - Mercedes Hill MD at Orthopaedic Ibjvpj5510/20/2019 8:45 am - Nubia Rascon PA at Cardiology Eqvnqm4104/13/2020 9:00 am - Nathalia Vicente, MSN, ACCOUNT SOLUTIONS ANALYST at Cardiology Dhmzkz2507/17/2019 - Cristina Tamayo, FNPM79.601 Pain in right armNew Medication:Prednisone 20 mg - 1 tablet daily x 4 daysComments:Try a heat pad, rest your arm, light stretches, do not try to pick anything up too heavy, ice can be helpful too. Use prednisone as directed, if symptoms worsen or have not improved in the next 24 hours or if you develop swelling you should go to the ED for further evaluation. Functional Status Functional Condition Comment Date Status [...] in nits at last office visit. [address] [place] [address] [phone] Carlitos Lucero MD Chronic GI upset, on PPI, still having GERD, hx Closed obstruction, IBS-D, cardiac hx, mental health hx. Using NSAIDs [address] [place], [place] [id number] [phone]
--- OUTSIDE RECORDS SUMMARY | 2019-08-22 11:28 | XMS REPORT | Continuity of Care Document ---
:1985 External Reference #:[id number] Author Name Rex Dorado M.D. 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 Suspension right ear Fluticasone Glennie 2 Sprays 16units Rex Dorado, 06/30/2018 Propionate [...] qhs Unknown 200/25mcg Aerosol History Medications Ciprodex 3-4 gtts bid in 15ml Dorado Rex, 05/13/2019 - 0.3-0.1% affected ear x 1 wk M.D. 07/06/2019 Suspension rebate: rxbin: [id number], rxpcn: pepito, rxgrp: [id number], clamp jig assembler: [id number]), id# [id number] Ofloxacin (Otic) 3-4drops twice daily 5ml Estrada Rex, 05/13/2019 - 0.3% in affected ear for M.D. 07/06/2019 Solution one week Immunizations Description No Information Available Vital Signs Date Vital Result Comment 07/06/2019 2:57pm Weight 160.00 lb Height 62 inches 5'2" BMI (Body Mass Index) 29.3 kg/m2 BP Systolic 109 mmHg BP Diastolic 76 mmHg Heart Rate 87 /min O2 % BldC Oximetry 97 % Body Temperature 98.2 F Pain Level 9 05/13/2019 7:44am Weight 155.00 lb Height 62 inches 5'2" BMI (Body Mass Index) 28.3 kg/m2 BP Systolic 99 mmHg BP Diastolic 66 mmHg Heart Rate 109 /min O2 % BldC Oximetry 95 % Body Temperature 97.4 F Pain Level 6 Results Description No Information Available Procedures Date Code Description Status 06/23/2019 04366 Tympanostomy, Gen. Anesth. 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 Eustachian tube disorder, bilateral H93.13 Tinnitus, bilateral Assessments Date Code Description Provider 06/23/2019 H93.13 Tinnitus, bilateral Miguel Ángel Jimenez [...] M.D. NO AUTH REQ FOR SURGERY Created [address] [place] [phone] [phone] Rex Dorado M.D. NO AUTH REQ FOR SURGERY Created [address] [place] [address] [phone]
--- OUTSIDE RECORDS SUMMARY | 2019-08-22 11:28 | XMS REPORT | Continuity of Care Document ---
:1985 External Reference #:[id number] Author Name Lindsay Frank, PA Address [address] [facility] [place] [address] Care Team Providers Name Role Phone Dina Dumont MD, PHD - Family Care Team Information Coding Spec [phone] Medicine Problems Active Problems Provider Date Cardiac pacemaker in situ Kota Mckinney M.D., Onset: 11/11/2014 [facility] Hypothyroidism Marylou Oneill M.D. Onset: 09/15/2015 Enthesopathy [...] tobacco use Kota Mckinney M.D., Onset: 08/17/2016 [facility] Hand joint pain Jeff Singh M.D. Onset: [...] Unknown End: Patient is a former smoker Smoking Status Reviewed: 07/02/19 Patient is a former smoker Exercise Type/Frequency Does housework daily Allergies, Adverse Reactions, Alerts Description No Known Drug Allergies Medications Active Medications SIG Qnty Indications Ordering Date Provider Risperidone 1 by mouth at 30tabs G47.00 [place], 06/04/2019 0.25mg bedtime MD Dina, Tablets PHD Prenatabs Rx 1 by mouth every 90tabs K90.0 [place], 05/12/2019 29-1mg day MD Dina, Tablets PHD Magnesium 27 1 tab by mouth 60tabs K90.0 [place], 05/12/2019 500(27Mg) twice a day as MD Dina, mg Tablets needed for muscle PHD spasm Calcium Antacid Extra 2 tab by mouth 240units E83.51 [place], 05/12/2019 Strength twice a day MD Dina, 750mg Chewtabs PHD Ferrous Sulfate Take One Tablet 60tabs D64.9 [place], 03/31/2019 By Mouth Twice A MD Dina, 325(65Fe) mg Tablets Day PHD QC Arthritis Pain Take One Tablet 90tabs [place], 03/31/2019 Relief By Mouth Every 8 MD Dina, 650mg Tablets ER Hours as Needed PHD For Pain Omeprazole 1 by mouth every 90caps [place], 02/23/2019 20mg day MD Dina, Capsules DR PHD Vitamin D3 Maximum 1 by mouth every 90caps [place], 01/19/2019 Strength day MD Dina, 5000Unit PHD Capsules Diclofenac Sodium Apply To Right 100units L03.113 [place], 12/24/2018 1% Hand & Wrist Four MD Dina, Gel Times A Day as PHD Needed Venlafaxine HCL ER Take One Capsule 30caps [place], 12/23/2018 By Mouth Every MD Dina, 37.5mg Caps ER 24HR Day PHD Fluticasone Inhale One puff 1units [place], 11/17/2018 Propionate/Salmeterol By Mouth Twice A MD Dina, Day PHD 113-14mcg/Act Aerosol Ventolin HFA 2 puffs inh every 1units J45.990 [place], 07/28/2018 4 hours wheezing MD Dina, 108(90Base) mcg/Act or difficulty PHD Aerosol breathing Atorvastatin Calcium Take One Tablet 30tabs [place], 04/14/2018 By Mouth Every MD Dina, 40mg Tablets Day PHD Meloxicam Take One Tablet 30tabs [place], 10/11/2015 15mg Tablets By Mouth Every MD Dina, Day PHD Levothyroxine Sodium Take One Tablet 30tabs E03.9 [place], 08/08/2015 By Mouth Every MD Dina, 50mcg Tablets Day PHD Loratadine Take One Tablet 30tabs [place], 02/16/2015 10mg Tablets By Mouth Every MD Dina, Day as Needed PHD Naratriptan HCL 1 bid prn Unknown 2.5mg [...] - 150mg can repeat in 1 MD PHD Unknown Tablets week Doxycycline 1 cap by mouth 30caps M15.3 Dina Dumont, 04/24/2019 - Monohydrate twice a day PHD [place] Unknown 100mg before meals Capsules Complete Lice Use as directed - 1units B85.0 Dina Dumont, 04/24/2019 - Treatment need to comb dennis ANGEL, PHD Unknown weekly 0.33-4-0.5% Kit Nicotine Apply 1 Patch 28units Z71.6 Kush Quinones MD 03/19/2019 - 14mg/24HR Once Daily In The Unknown Patches 24HR Morning,Remove AT Night,Rotate Sites Ondansetron take one tablet 15tabs R11.0 Dina Dumont, 02/04/2019 - 4mg by mouth every 8 , PHD 02/23/2019 Tablets Dispers hours as needed for nausea Meclizine HCL 1 tab by mouth 42tabs R42 Dina Dumont, 02/04/2019 - four times a day , PHD 04/02/2019 12.5mg Tablets as needed for dizziness Ondansetron once - given in 1tabs R11.0 Dina Dumont, 02/04/2019 - 8mg office , PHD 02/23/2019 Tablets Dispers SM Nicotine Apply 1 Patch 28units Z71.6 Kush Quinones MD 01/22/2019 - Transdermal Once Daily In The 03/19/2019 System/Step 2/Clear Morning,Remove AT Night,Rotate 14mg/24HR Patches Sites 24HR Vitamin D3 Adult 4 tab by mouth 120units Dina Dumont, 01/19/2019 - Gummies every day , PHD 02/04/2019 1000Unit Chewtabs Bactrim 1 tab by mouth 14tabs Dina Dumont, 01/09/2019 - 400-80mg twice a day , PHD 01/15/2019 Tablets Medications Administered in Office Medication SIG Qnty Indications Ordering Provider Date Depomedrol 40mg/1cc Mercedes Hill MD 06/01/2019 (methylprednisolone acetate) Injection Immunizations CPT Code Status Date Vaccine Lot # [id number] Given 08/20/2018 Influenza Virus Vaccine, Quadrivalent, 36 Mos+, [id number] [id number] Given 01/03/2018 Td Preservative Free For Use In Individuals 7 Yrs [id number] Or Older [id number] Given 09/06/2017 Influenza Virus Vaccine Quadrivalent Iiv4 Split [id number] Preser Free Id [id number] Given 06/22/2016 Influenza Vaccine (Fluzone) Age 3 And Older [id number] Q2038 Given 08/08/2015 Influenza Vaccine (Fluzone) Age 3 And Older [id number] 52836 Given 09/15/2014 flu vaccination 57743 Given 07/31/2013 flu vaccination 23705 Given 08/18/2010 flu vaccination [id number] Refused 08/07/2017 Influenza Virus Vaccine Quadrivalent Iiv4 Split Preser Free Id Vital Signs Date Vital Result Comment 07/02/2019 8:55am BP Systolic 112 mmHg BP Diastolic 72 mmHg Body Temperature 97.7 F Heart Rate 91 /min Height 63 inches 5'3" Weight 159.00 lb BMI (Body Mass Index) 28.2 kg/m2 BSA (Body Surface Area) 1.75 m2 [place] body weight in kilograms 52 kg O2 % BldC Oximetry 96 % 06/04/2019 9:45am BP Systolic 107 mmHg BP Diastolic 68 mmHg Body Temperature 97.2 F Heart Rate 100 /min Respiratory Rate 16 /min Height 63 inches 5'3" Weight 154.00 lb BMI (Body Mass Index) 27.3 kg/m2 BSA (Body Surface Area) 1.73 m2 [place] body weight in kilograms 52 kg O2 % BldC Oximetry 98 % Results Test Date Facility Test Result H/L Range Note PTH Intact 05/28/2019 [facility] Calcium 9.2 mg/dL 8.7-10.2 1 W/Calcium [address] [place], [place] [id number] [phone] PTH,Intact 26 pg/mL 15-65 . . 2 Laboratory test 05/28/2019 [facility] Vitamin 54.4 30.0-100.0 3 finding [address] [facility] D,25-Hydroxy ng/[place] [address] [phone] Albumin 3.2 g/dL Low 3.4-5.0 Vitamin B12 And 05/28/2019 [facility] Vitamin B12 560 pg/mL Normal 193-986 Folate [address] [place], [place] [address] [phone] Folic Acid 12.7 ng/mL Normal 3.1-17.5 Laboratory 04/24/2019 [facility] Sedimentation 11 mm/hr Normal 2-40 4, 5 test finding [address] [place], [place] [address] [phone] Rheumatoid Factor Screen < 10.0 IU/mL Normal 0.0-15.0 C-Reactive Protein,Quant < 3.0 mg/L <3.0 Lyme Igm 04/24/2019 [facility] Lyme Disease < 0.80 0.00-0.79 6 (Reflex [facility] [address] Antibody,QT,Igm index Blot) [place] [address] [phone] CCP Igg/Iga 04/24/2019 [facility] CCP Igg/Iga 7 units 0-[address] [place] [address] [phone] LDL Cholesterol 01/15/2019 [facility] Cholesterol 126 <200 8, [address] mg/[place] [address] [phone] Triglycerides 125 mg/dL <150 10 HDL Cholesterol 44 mg/dL >40 11 LDL-Cholesterol 57 mg/dL < 100 12 Laboratory test 01/15/2019 [facility] Thyroid 3.34 Normal 0.30-4.[address] Stim uIU/[place] [address] Hormone [phone] Comprehensive 01/15/2019 [facility] Glucose 78 mg/dL Normal 74-106 Metabolic Panel [address] [place], [place] [address] [phone] BUN 20 mg/dL High 7-18 Creatinine 0.9 mg/dL Normal 0.6-1.3 Glom Filtration Rate, Estimate >60 mL/min >60 If >60 mL/min >60 13 BUN/Creat 22.2 ratio Sodium 138 mmol/L Normal 136-145 Potassium 4.5 mmol/L Normal 3.5-5.1 Chloride 109 mmol/L High 98-107 Carbon Dioxide 24 mmol/L Normal 21-32 Anion Gap 5 mEq/L Low 8-16 Calcium 8.3 mg/dL Low 8.5-10.1 Total Protein 6.8 g/dL Normal 6.4-8.2 Albumin 3.1 g/dL Low 3.4-5.0 Globulin 3.7 g/dL Normal 1.9-4.3 Alb/Glob 0.8 ratio Bilirubin,Total 0.2 mg/dL Normal 0.2-1.0 Sgot/Ast 31 U/L Normal 15-37 SGPT/Alt 28 U/L Normal 12-78 Alkaline Phosphatase 81 U/L Normal 45-117 CBC W/Automated 01/15/2019 [facility] White Blood 6.7 K/uL Normal 3.1-10.[address] [place] [address] [phone] Red Blood Count 3.80 M/uL Low 3.90-5.40 Hemoglobin 11.6 gm/dL Normal 11.6-15.8 Hematocrit 35.5 % Low 36.0-46.1 Mean Cell Volume 93.4 fl Normal 80.9-99.0 Mean Corpuscular HGB 30.5 pg Normal 25.9-32.7 Mean Corpuscular HGB Conc 32.7 g/dL Normal 30.8-34.3 Platelet Count 162 K/uL Normal 155-360 Red Cell Distri Width SD 57.3 fl High 36-47 Red Cell Distri Width %CV 16.7 % High 11.7-14.4 Mean Platelet Volume 10.7 fl Normal 8.9-12.4 Neut% 45.0 % Normal 40.4-72.8 Lymph % 44.8 % High 20.0-42.0 [place] % 8.8 % Normal 4.3-13.2 Eo% 0.9 % Normal 0.0-6.6 Bas% 0.1 % Normal 0.0-1.1 Immature Grans 0.4 % Normal 0.0-5.0 NRBC % 0.0 /100WBC < 10/ 100 WBC Neut# 3.02 K/uL Normal 1.8-7.0 Lymph # 3.01 K/uL Normal 1.0-4.0 [place] # 0.59 K/uL Normal 0.3-0.9 Eos # 0.06 K/uL Normal 0.0-0.5 Baso # 0.01 K/uL Normal 0.0-0.1 Immature Grans Absolute 0.03 K/uL NRBC # 0.00 K/uL Iron-Tibc-%Sat 01/15/2019 [facility] Serum Iron 134 g/dL Normal 50-170 [address] [place] [address] [phone] Total Iron Binding Capacity 399 g/dL Normal 250-450 Transferrin %Saturation 34 % Normal 12-57 1 E83.51 K90.0 2 Interpretation Intact PTH Calcium (pg/mL) (mg/dL) Normal 15 - 65 8.6 - 10.2 Primary Hyperparathyroidism >65 >10.2 Secondary Hyperparathyroidism >65 <10.2 Non-Parathyroid Hypercalcemia <65 >10.2 Hypoparathyroidism <15 < 8.6 Non-Parathyroid Hypocalcemia 15 - 65 < 8.6 Performed at: [address] [id number] Field Application Engineer: Estelita Mcpherson MD, Phone: [phone] Vitamin D deficiency has been defined by the [place] of [employer] and an Endocrine Society practice guideline as a level of serum 25-OH vitamin D less than 20 ng/mL (1,2). The Endocrine Society went on to further define vitamin D insufficiency as a level between 21 and 29 ng/mL (2). 1. IOM ([place] of [employer]). 2010. Dietary reference intakes for calcium and D. [place]: The National Academies Press. 2. Clementina MF, Giovanny NC, Jose C MAGANA, et al. Evaluation, treatment, and prevention of vitamin D deficiency: an Endocrine Society clinical practice guideline. JCEM. 2010; 96(7):1911-30. Performed at: [address] [id number] Field Application Engineer: Estelita Mcpherson MD, Phone: [phone] M15.3 5 This result was obtained [...] - 59 Strong positive >59 Performed at: [address] [id number] Field Application Engineer: Estelita Mcpherson MD, Phone: [phone] Performed at: [address] [id number] Field Application Engineer: Tiago Srivastava MD, Phone: [phone] 8 E78.2, L03.113, D53.9 9 Reference Guidelines*: Desirable: ........... < 200 mg/dL Borderline High: ..... 200-239 mg/dL High: ................ >= 240 mg/dL * The National Cholesterol Education Program (NCEP) 10 Reference Guidelines*: Normal: ............. < 150 mg/dL Borderline High: .... 150-199 mg/dL High: ............... 200-499 mg/dL Very High: .......... > 500 mg/dL * Source: National Cholesterol Education Program (NCEP) 11 Reference Guidelines*: Low HDL: ..... < 40 mg/dL Normal: ..... 40-60 mg/dL Desirable: ... > 60 mg/dL *The National Cholesterol Education Program(NCEP) 12 Reference Guidelines*: Optimal:........... <100 mg/dL Near Optimal....... 100-129 mg/dL Borderline High.... 130-159 mg/dL High............... 160-189 mg/dL Very High.......... >=190 mg/dL * Source: National Cholesterol Education Program (NCEP) 13 Note: Persistent reduction for 3 months or more in an eGFR <60 mL/min/1.73 m2 defines CKD. Patients with eGFR values >/=60 mL/min/1.73 m2 may also have CKD if evidence of persistent proteinuria is present. The original MDRD equation for estimated GFR is not valid for patients less than 18 years of age. Additional information may be found at www.kdoqi.org. Procedures Date Code Description Status 06/01/2019 63298 Asp./Injection major joint Completed 04/30/2019 08462 Echocardiogram Complete Completed 03/17/2019 62702 Dual Pacemaker Programming Anayisis, Review And Report Completed Medical Devices Description No Information Available Encounters Type Date Location Provider Dx Diagnosis Office Visit 07/02/2019 Orthopaedic Office Lindsay Frank, M25.531 Pain in right 9:30a PA wrist Office Visit 06/04/2019 Family [facility] Julia, S93.402A Sprain of 10:15a [facility] MD Dina, unspecified PHD ligament of left ankle, init encntr G47.00 Insomnia, unspecified Office Visit 06/01/2019 Orthopaedic Liz, M23.304 Other meniscus 1:45p Office MD Mercedes derangements, unsp medial meniscus, left knee M17.12 Unilateral primary osteoarthritis, left knee M25.562 Pain in left knee Office Visit 05/28/2019 1:00p Pulmonology Thelma Talley, J84.9 Interstitial PA pulmonary disease, unspecified R05 Cough F17.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, cigarettes, in remission Z71.6 Tobacco abuse counseling Office Visit 05/19/2019 Orthopaedic Liz, M23.004 Cystic meniscus, 2:00p Office MD Mercedes [...] abuse counseling Office Visit 02/04/2019 4:15p Family Medicine [place], H81.313 Aural vertigo, Jim Arroyo MD, bilateral PHD R42 Dizziness and giddiness R11.0 Nausea Office Visit 01/15/2019 8:30a Family Medicine [place] L03.113 Cellulitis of Jim Arroyo MD, right upper limb PHD M65.241 Calcific tendinitis, right hand L03.113 Cellulitis of right upper limb E03.9 Hypothyroidism, unspecified D53.9 Nutritional anemia, unspecified M65.241 Calcific tendinitis, right hand E78.2 Mixed hyperlipidemia G47.00 Insomnia, unspecified E03.9 Hypothyroidism, unspecified E78.2 Mixed hyperlipidemia Assessments Date Code Description Provider 07/02/2019 M25.531 Pain in right wrist Lindsay [...] PHD 05/12/2019 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 Dina Dumont MD, PHD capitis 05/12/2019 K90.0 Celiac disease Dina Dumont [...] PHD 04/24/2019 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 Dina Dumont MD, PHD capitis 04/24/2019 Z95.0 Presence of cardiac pacemaker Dina Dumont MD, PHD 04/14/2019 R07.9 Chest pain, unspecified Kota Mckinney M.D., [facility] 04/14/2019 Z95.0 Presence of cardiac pacemaker Kota Mckinney M.D., [facility] 04/02/2019 R07.9 Chest pain, unspecified Dina Dumont MD, PHD 04/02/2019 M94.0 Chondrocostal junction syndrome Dina Dumont MD, PHD [[facility]] 04/02/2019 F41.9 Anxiety disorder, unspecified Dina Dumont MD, PHD 04/02/2019 K90.0 Celiac disease Dina Dumont MD, PHD 03/17/2019 I47.2 Ventricular tachycardia Kota Mckinney M.D., [facility] 03/17/2019 I47.2 Ventricular tachycardia Nubia Rascon, PA 03/17/2019 I49.5 Sick sinus syndrome Kota Mckinney M.D., [facility] 03/17/2019 I49.5 Sick sinus syndrome Nubia Rascon, PA 03/17/2019 Z95.0 Presence of cardiac pacemaker Kota Mckinney M.D., [facility] 03/17/2019 Z95.0 Presence of cardiac pacemaker Nubia Rascon, PA 02/23/2019 R07.9 Chest pain, unspecified Thelma Talley, [facility] 02/23/2019 F17.210 Nicotine dependence, cigarettes, Thelma Talley PA formerly [facility] 02/23/2019 Z71.6 Tobacco abuse counseling Thelma Talley PA 02/04/2019 H81.313 Aural vertigo, bilateral Dina Dumont MD, PHD 02/04/2019 R42 Dizziness and giddiness Dina Dumont MD, PHD 02/04/2019 R11.0 Nausea Dina Dumont MD, PHD 01/15/2019 L03.113 Cellulitis of right upper limb Dina Dumont MD, PHD 01/15/2019 M65.241 Calcific tendinitis, right hand Dina Dumont MD, PHD 01/15/2019 L03.113 Cellulitis of right upper limb Dina Dumont MD, PHD 01/15/2019 E03.9 Hypothyroidism, Dina Smith MD, PHD 01/15/2019 D53.9 Nutritional anemia, unspecified Dina Dumont MD, PHD 01/15/2019 M65.241 Calcific tendinitis, right hand Dina Dumont MD, PHD 01/15/2019 E78.2 Mixed hyperlipidemia Dina Dumont MD, PHD 01/15/2019 G47.00 Insomnia, unspecified Dina Dumont MD, PHD 01/15/2019 E03.9 Hypothyroidism, unspecified Dina Dumont MD, PHD 01/15/2019 E78.2 Mixed hyperlipidemia Dina Dumont MD, PHD Plan of Treatment Future Appointment(s):07/23/2019 10:30 am - Lindsay Frank PA at Orthopaedic Usltfa1409/30/2019 11:00 am - Thelma Talley PA at Yniuasgskpn86/06/2019 10:30 am - Mercedes Hill MD at Orthopaedic Plntsh3810/20/2019 8:45 am - Nubia Rascon PA at Cardiology Tavoor6004/13/2020 9:00 am - Nathalia Vicente , MSN, IT SECURITY ANALYST at Cardiology Dzsknc8007/02/2019 - Lindsay Frank, PAM25.531 Pain in right wristNew Xrays:RMP, Wrist, RT, Complete (min 3 view), Ordered: New Therapy:Physical/Occupational TherapyComments:She has a wrist brace and have recommended that she wear that and if she fails to make improvement over the next week and I have provided her with a order for physical therapy that she can start. She'll continue with the ibuprofen and Tylenol as needed. Ice, elevation and rest. I will plan on rechecking her back in 3 weeks.Follow up:3 wk Functional Status Functional Condition Comment Date Status [...] in nits at last office visit. [address] [place] [address] [phone] Carlitos Lucero MD Chronic GI upset, on PPI, still having GERD, hx Closed obstruction, IBS-D, cardiac hx, mental health hx. Using NSAIDs [address] [place] [address] [phone]
[2019-08-22 12:21] VITALS: BP 103/74
--- NOTE | 2019-08-22 13:40 | UC ---
Hand/Wrist HPI - HPI Summary HPI Summary: Pt presents with c/o sudden onset of right hand swelling X 2 days. Denies injury, recent blood work or recent tattoo. Pt has previous diagnosis of carpal tunnel. - History Of Current Complaint Chief Complaint: UCUpperExtremity Stated Complaint: RT HAND SWELLING Time Seen by Provider: 08/22/19 13:25 Hx Obtained From: Patient Hx Last Menstrual Period: s/p Novasure ?: No Onset/Duration: Sudden Onset, Lasting Days, Still Present Severity Initially: Moderate Severity Currently: Moderate Pain Intensity: 7 Character Of Pain: Dull, Aching, Stiffness Aggravating Factor(s): Movement Alleviating Factor(s): Rest, Ice Associated Signs And Symptoms: Positive: Swelling Related History: Dominant Hand Right - Risk Factors Compartment Syndrome Risk Factors: Pain - Allergies/Home Medications Allergies/Adverse Reactions: Allergies Allergy/AdvReac Type Severity Reaction Status Date / Time enviromental Allergy Mild Congestion Uncoded 08/22/19 12:17 Home Medications: Home Medications ARIPiprazole TAB* [Abilify TAB*] 10 mg PO DAILY 08/22/19 [History Confirmed 07/02] Acetaminophen [Acetaminophen ER] 650 mg PO Q8H PRN 08/22/19 [History Confirmed 08/22/19] Albuterol HFA INHALER* [Ventolin HFA Inhaler*] 2 puff INH Q4H PRN 08/22/19 [ History Confirmed 08/22/19] Atorvastatin* [Lipitor*] 40 mg PO DAILY 08/22/19 [History Confirmed 08/22/19] Calcium Carbonate CHEW TAB* [Tums*] 1,500 mg PO BID 08/22/19 [History Confirmed 08/22/19] Cholecalciferol (Vitamin D3) [D 5000] 5,000 unit PO DAILY 08/22/19 [History Confirmed 08/22/19] Diclofenac 1% GEL (NF) [Voltaren 1% GEL (NF)] 1 applic TOPICAL QID PRN 08/22/19 [History Confirmed 08/22/19] Dicyclomine CAP* [Bentyl CAP*] 10 mg PO TID AC 08/22/19 [History Confirmed 08/22] Divalproex ER TAB(*) [Depakote ER TAB(*)] 1,000 mg PO BEDTIME 08/22/19 [History Confirmed 08/22/19] Ferrous Sulfate TAB* 325 mg PO BID 08/22/19 [History Confirmed 08/22/19] Fluticasone/Salmeterol [Fluticasone Propionate/SA 113-14 Mcg/Act] 1 puff INH BID 08/22/19 [History Confirmed 08/22/19] Gabapentin CAP(*) [Neurontin 400 mg CAP(*)] 400 mg PO TID 08/22/19 [History Confirmed 08/22/19] LORazepam TAB(*) [Ativan 1 MG TAB (*)] 1 - 2 mg PO BID PRN 08/22/19 [History Confirmed 08/22/19] Levothyroxine TAB* [Synthroid TAB*] 50 mcg PO DAILY 08/22/19 [History Confirmed 08/22/19] LoraTADine TAB(NF) [Claritin 10 MG TAB(NF)] 10 mg PO DAILY 08/22/19 [History Confirmed 08/22/19] Magnesium [Magnesium Elemental] 30 mg PO BID PRN 08/22/19 [History Confirmed 07/02] Meloxicam(NF) [Mobic(NF)] 15 mg PO DAILY 08/22/19 [History Confirmed 08/22/19] Naratriptan HCl [Amerge] 2.5 mg PO SEE INSTRUCTIONS PRN 08/22/19 [History Confirmed 08/22/19] Omeprazole CAP (NF) [Prilosec CAP* 20 MG] 20 mg PO DAILY 08/22/19 [History Confirmed 08/22/19] Vitamin TAB* 1 tab PO DAILY 08/22/19 [History Confirmed 08/22/19] Venlafaxine EXT RELEASE CAP* [Effexor Xr CAP*] 37.5 mg PO DAILY 08/22/19 [ History Confirmed 08/22/19] risperiDONE* ODT TAB [Risperidone ODT-] 0.25 mg PO BEDTIME 08/22/19 [History Confirmed 08/22/19] tiZANidine TAB* [Zanaflex TAB*] 2 - 4 mg PO Q8H PRN 08/22/19 [History Confirmed 08/22/19] PMH/Surg Hx/FS Hx/Imm Hx Previously Healthy: Yes - Surgical History Surgical History: Yes Surgery Procedure, Year, and Place: pace maker - 03/2012. L knee ACL repair. L hand surgery. tubal ligation 2006. ablation - Family History Known Family History: Positive: None Family History: no reported cardio vascular issues in family lineage - Social History Occupation: Disabled Lives: With Family Alcohol Use: None Substance Use Type: None Smoking Status (MU): Former Smoker Type: Cigarettes Amount Used/How Often: 10 cigarettes a day, 8-9 years Length of Time of Smoking/Using Tobacco: ~1/2 PPD for 10+ Years Have You Smoked in the Last Year: Yes When Did the Patient Quit Smoking/Using Tobacco: 02/2019 Review of Systems All Other Systems Reviewed And Are Negative: Yes Constitutional: Positive: Negative Skin: Positive: Negative Eyes: Positive: Negative ENT: Positive: Negative Respiratory: Positive: Negative Cardiovascular: Positive: Negative Gastrointestinal: Positive: Negative Genitourinary: Positive: Negative Motor: Positive: Decreased ROM - right hand and wrist Neurovascular: Positive: Negative Musculoskeletal: Positive: Edema - right hand and wrist Neurological: Positive: Negative Psychological: Positive: Negative Is Patient Immunocompromised?: No Physical Exam Triage Information Reviewed: Yes Appearance: Well-Appearing, Other: - unkempt Vital Signs: Initial Vital Signs Temp 97.8 F 08/22/19 12:12 Pulse 94 08/22/19 12:12 Resp 16 08/22/19 12:12 BP 103/74 08/22/19 12:12 Pulse Ox 100 08/22/19 12:12 Vital Signs Reviewed: Yes Eye Exam: Normal ENT Exam: Normal Respiratory: Positive: No respiratory distress Musculoskeletal Exam: Normal Musculoskeletal: Positive: Strength Intact, ROM Intact, No Edema Neurological Exam: Normal Psychological Exam: Normal Skin Exam: Other - multiple tattoos Hand/Wrist Course/Dx - Differential Dx/Diagnosis Differential Diagnosis/HQI/PQRI: Carpal Tunnel Syndrome, Gout, Infection, Sprain , Strain Provider Diagnosis: Swelling of right hand Discharge ED - Sign-Out/Discharge Documenting (check all that apply): Patient Departure All imaging exams completed and their final reports reviewed: No Studies - Discharge Plan Condition: Stable Disposition: HOME Patient Education Materials: Arthralgia (ED), Swollen Joint (ED), Safe Use of NSAIDs (ED) Referrals: Dina Dumont MD [Primary Care Provider] - Fawn Reeder MD [Medical Doctor] - Additional Instructions: Please follow up with your PCP and an orthopedic provider as needed. - Billing Disposition and Condition Condition: STABLE Disposition: Home - Attestation Statements Provider Attestation: I was available for consult. This patient was seen by the ARTHUR. The patient was not presented to , seen by or examined by me -Loreta Aggarwal MD
== END 2019-08-22 13:47 | disposition home or self-care (01) ==
LOC: UCCORT 11:19
DX: M25.441 Effusion, right hand (principal); Z87.891 Personal history of nicotine dependence; Z95.0 Presence of cardiac pacemaker; Z91.09 Other allergy status, other than to drugs and biological substances
CPT/HCPCS: 99212; G0463

== ENCOUNTER 2019-12-24 11:06 | Day surgery (SDC) | payer OTHER ==
[~2019-12-24 11:06] MED LIST: Acetaminophen TAB* 325 MG ONE; Acetaminophen TAB* 325 MG PO ONE; Buffered Lidocaine 1% SYRIN* 1 ML/SYRINGE INTRADERM ONE; Lactated Ringers 1000 ML Bag* 1,000 ML IV SCH
[2019-12-24] MEDS ORDERED: Bupivacaine 0.25% SDV* 30 ML ONE (12:23)
[2019-12-24] MEDS ORDERED: Midazolam* 1 MG/ML 2 ML VIAL (2 MG) ONE (12:31)
[2019-12-24] MEDS ORDERED: Lidocaine 2% PF * 5 ML VIAL ONE (12:37)
[2019-12-24] MEDS ORDERED: Ketorolac INJ* 30 MG/ML 1 ML VIAL ONE (12:39)
[2019-12-24] MEDS ORDERED: Dexamethasone IV* 4 MG/ML 1 ML (4 MG) ONE (12:39)
[2019-12-24] MEDS ORDERED: Propofol* 10 MG/ML 20 ML BTL ONE (12:39)
[2019-12-24] MEDS ORDERED: fentaNYL* 50 MCG/ML 2 ML VIAL (100 MCG VIAL) ONE (12:40)
[2019-12-24] MEDS ORDERED: fentaNYL* 50 MCG/ML 2 ML VIAL (100 MCG VIAL) IV PRN (12:56)
[2019-12-24] MEDS ORDERED: Levalbuterol 0.63MG/3ML NEB* UNIT OF USE INH PRN (12:56)
[2019-12-24] MEDS ORDERED: Naloxone* 0.4 MG/ML 1 ML VIAL IV PRN (12:56)
[2019-12-24] MEDS ORDERED: DiMENhydriNATE IV* 50 MG/ML VIAL IV PUSH PRN (12:56)
[2019-12-24] MEDS ORDERED: diPHENhydraMINE IV* 50 MG/ML 1 ml VIAL (BENADRYL) IV PRN (12:56)
[2019-12-24] MEDS ORDERED: HYDROcodone/ACETAMIN 5-325 MG* 1 TAB PO PRN (12:56)
[2019-12-24 14:03] VITALS: BP 106/63
--- NOTE | 2019-12-25 00:04 | OP ---
DATE OF OPERATION: 12/24/19 - [facility] DATE OF : 81 SURGEON: Jeff Reddy MD. RETAIL ASSISTANT: TRIPP Schmid. ANESTHESIOLOGIST: Dr. Solomon. ANESTHESIA: Local MAC. PRE-OP DIAGNOSIS: Left wrist recurrent de Quervain's tendinitis. POST-OP DIAGNOSES: 1. Left wrist recurrent de Quervain's tendinitis. 2. Left wrist radial styloid DJD. OPERATIVE PROCEDURE: 1. Revision left de Quervain's release. 2. Left wrist radial styloidectomy. ESTIMATED BLOOD LOSS: 2 mL. COMPLICATIONS: None. FINDINGS: See above and below. DESCRIPTION OF PROCEDURE: Ms. Mahendra Hernandez was seen in the preoperative holding area. The correct side, site, and procedure was identified. We came back to the operating room where the operative area was infiltrated with 0.25% plain Marcaine. The arm was then prepped and draped in the usual fashion and a time-out was performed. The arm was exsanguinated with the Esmarch and the tourniquet was inflated. I reopened her prior longitudinal incision and made it a little bit longer distally and proximally. I worked down through the scar tissue. The radial sensory nerve was identified and preserved throughout the surgery. Ragnell retractors were placed and full-thickness flaps were retracted away off of the tendon sheath. I then released the tendon sheath along the dorsal margin with the knife and the #15 blade, all the tenosynovitis was excised. No accessory compartment was identified. The release was completed down past the radial styloid. After I had retracted the tendons out of the way, I looked at the radial styloid. It looked a little degenerative. It looked a touch degenerative on her preoperative x-rays. I decided to go ahead and perform a small radial styloidectomy. I freed up the soft tissue around the periphery of the radial styloid. I then used the osteotome to excise the last 4 to 5 mm on the tip of the styloid. A [place] elevator had been placed in the joint to protect the articular cartilage. This all came out in one nice piece. I cleaned up any margins of the styloidectomy. I did preserve the radioscaphocapitate ligament origin. At this point, everything was looking good. The wound was irrigated out. The bone wax was placed on the cancellous bone. Skin was closed with 4-0 Monocryl and Steri-Strips. She was placed in the short-arm plaster wrist splint and taken to the recovery room in stable condition. [id number] #: [id number] MTDD
== END 2019-12-24 14:13 | disposition home or self-care (01) ==
LOC: OREAST 11:06
PROVIDERS: ATTEND Orthopaedic Surgery Hand Surgery
DX: M65.4 Radial styloid tenosynovitis [de Quervain] (principal); M19.032 Primary osteoarthritis, left wrist; M25.532 Pain in left wrist; E78.5 Hyperlipidemia, unspecified; E03.9 Hypothyroidism, unspecified; E78.2 Mixed hyperlipidemia; F41.8 Other specified anxiety disorders; K21.9 Gastro-esophageal reflux disease without esophagitis; I47.1 Supraventricular tachycardia; I45.10 Unspecified right bundle-branch block; I49.5 Sick sinus syndrome; Z95.0 Presence of cardiac pacemaker; F17.210 Nicotine dependence, cigarettes, uncomplicated
CPT/HCPCS: A9270-GY; J1100; J1885; J2250; J2704; J3010; J3490